=== PATIENT | female | born 1935 | race African-American/Black ===

== ENCOUNTER 2017-07-22 11:19 | Emergency (ER) | payer OTHER ==
[~2017-07-22] VITALS: Ht 162.6 cm; Wt 100.0 kg
[2017-07-22] MEDS ORDERED: ASPIRIN 81MG TABLET PO STA (13:09)
[2017-07-22 13:26] LABS: HEMOGLOBIN. 12.4 g/dL (12.0-16.0); MEAN CORPUSCULAR HEMOGLOBIN 30.2 pg (28.0-32.0); MEAN CORPUSCULAR VOLUME 92.5 fL (81.0-99.0); MEAN PLATELET VOLUME 8.5 fl (7.4-10.4); PLATELET 178 x1000/uL (130-400); RED BLOOD CELL COUNT 4.11 mill/uL (4.2-5.4); RED CELL DISTRIBUTION WIDTH 13.7 % (11.6-14.6)
[2017-07-22 13:35] LABS: INR 1.1; PARTIAL THROMBOPLASTIN TIME 26.8 sec (23.4-31.0); PROTHROMBIN TIME 11.3 sec (9.4-11.6)
[2017-07-22 13:43] LABS: CARBON DIOXIDE 32 mEq/L (21-32); CHLORIDE 103 mEq/L (98-107); TROPONIN I < 0.02 ng/mL (0.00-0.04)
[2017-07-22 14:09] LABS: PLATELET ESTIMATE NORMAL
[2017-07-22 16:04] VITALS: BP 159/76
== END 2017-07-22 16:42 | disposition home or self-care (01) ==
LOC: ER 14:12
DX: G89.29 Other chronic pain (principal); R07.9 Chest pain, unspecified; I10 Essential (primary) hypertension; M17.11 Unilateral primary osteoarthritis, right knee; M25.561 Pain in right knee; E78.00 Pure hypercholesterolemia, unspecified; Z95.0 Presence of cardiac pacemaker
CPT/HCPCS: 36415; 71010; 73560; 80053; 83880; 84484; 85025; 85610; 85730; 93005; 99285; Z7610

== ENCOUNTER 2017-08-05 13:51 | Emergency (ER) | payer OTHER ==
[~2017-08-05] VITALS: Ht 162.6 cm; Wt 100.0 kg
[2017-08-05] MEDS ORDERED: KETOROLAC 60MG/2ML VIAL IM ONE (14:45)
[2017-08-05 17:45] VITALS: BP 162/60
== END 2017-08-05 17:51 | disposition home or self-care (01) ==
LOC: ER 15:39
DX: S70.01XA Contusion of right hip, initial encounter (principal); I10 Essential (primary) hypertension; E78.00 Pure hypercholesterolemia, unspecified; Z95.0 Presence of cardiac pacemaker; Z88.5 Allergy status to narcotic agent; W19.XXXA Unspecified fall, initial encounter; Y93.89 Activity, other specified; Y92.89 Other specified places as the place of occurrence of the external cause; Y99.8 Other external cause status
CPT/HCPCS: 73502; 96372; 99284; J1885

== ENCOUNTER → 2018-02-15 | Outpatient (CLI) | payer OTHER | END | disposition home or self-care (01) | LOC: MAMMO 10:41 | PROVIDERS: ATTEND Specialist | DX: Z12.31 Encounter for screening mammogram for malignant neoplasm of breast (principal) | CPT/HCPCS: 77067 ==

== ENCOUNTER → 2018-03-17 | Day surgery (SDC) | payer MEDICARE, OTHER ==
[~2018-03-17] MED LIST: LIDOCAINE HCL/EPINEPHRINE 1%-EPI 1:100,000 30 ML VIAL INFIL ONE; SODIUM BICARBONATE 4% (2.4MEQ) 5ML VIAL IV ONE
== END | disposition home or self-care (01) ==
LOC: RAD 09:03
PROVIDERS: ATTEND Specialist
DX: C50.412 Malignant neoplasm of upper-outer quadrant of left female breast (principal)
CPT/HCPCS: 19083; 88305; J3490

== ENCOUNTER 2018-05-16 06:06 | Day surgery (SDC) | payer OTHER, MEDICARE ==
[~2018-05-16] VITALS: Ht 165.1 cm; Wt 117.9 kg
[~2018-05-16 06:06] MED LIST changes: +LACTATED RINGERS 1,000 ML IV SCH; -LIDOCAINE HCL/EPINEPHRINE 1%-EPI 1:100,000 30 ML VIAL INFIL ONE; -SODIUM BICARBONATE 4% (2.4MEQ) 5ML VIAL IV ONE
[2018-05-16] MEDS ORDERED: METHYLENE BLUE 50 MG/10 ML AMP IV ONE (08:00)
[2018-05-16] MEDS ORDERED: SKIN ADHESIVE 0.7 GM EA TOP ONE (08:00)
[2018-05-16] MEDS ORDERED: NORMAL SALINE 0.9% 10 ML SYR ONE (08:00)
[2018-05-16] MEDS ORDERED: BUPIVACAINE HCL 0.5% (5MG/ML) 50ML ONE (08:00)
[2018-05-16] MEDS ORDERED: SODIUM BICARBONATE 4% (2.4MEQ) 5ML VIAL IV ONE (08:00)
[2018-05-16] MEDS ORDERED: LIDOCAINE HCL/PF 1% 10 MG/ML 5ML VIAL ONE (08:00)
[2018-05-16] MEDS ORDERED: CLINDAMYCIN 300 MG in DEXTROSE 5% WATER 50 ML IV NR (10:00)
[2018-05-16] MEDS ORDERED: TRAM50TA3 PO (10:19)
[2018-05-16] MEDS ORDERED: METO-396 PO (10:19)
[2018-05-16] MEDS ORDERED: VALS40TA11 PO (10:19)
[2018-05-16] MEDS ORDERED: AMIO100T4 PO (10:19)
[2018-05-16] MEDS ORDERED: CYAN25006 SL (10:19)
[2018-05-16] MEDS ORDERED: CLOP75TA33 PO (10:19)
[2018-05-16] MEDS ORDERED: ROSU5TAB10 PO (10:19)
[2018-05-16] MEDS ORDERED: ASPI-1158 PO (10:19)
[2018-05-16] MEDS ORDERED: AMLO2.5T45 PO (10:19)
[2018-05-17] MEDS ORDERED: VALS1TAB76 PO (00:50)
== END 2018-05-16 13:00 | disposition home or self-care (01) ==
LOC: RAD 06:06
PROVIDERS: ATTEND Surgery
DX: C50.912 Malignant neoplasm of unspecified site of left female breast (principal); C77.3 Secondary and unspecified malignant neoplasm of axilla and upper limb lymph nodes; I10 Essential (primary) hypertension; E78.00 Pure hypercholesterolemia, unspecified; Z79.82 Long term (current) use of aspirin; Z79.899 Other long term (current) drug therapy
CPT/HCPCS: 19301; 38525; 78195; 82962; 88305; 88309; 88331; A4216; G0168; J3490; J7120; 19083; J7060; Q9968

== ENCOUNTER 2018-05-20 17:05 | Inpatient (IN) | payer MEDICARE, OTHER ==
[~2018-05-20] VITALS: Ht 163.8 cm; Wt 105.0 kg
[~2018-05-20 17:05] MED LIST changes: +AMIO100T4 PO; +AMLO2.5T45 PO; +ASPI-1158 PO; +CLOP75TA33 PO; +CYAN25006 SL; -LACTATED RINGERS 1,000 ML IV SCH; +METO-396 PO; +ROSU5TAB10 PO; +TRAM50TA3 PO; +VALS1TAB76 PO
[2018-05-20] MEDS ORDERED: ONDANSETRON HCL 4MG/2ML VIAL IV PRN (18:45)
[2018-05-20 20:00] VITALS: BP 144/61
[2018-05-20] MEDS ORDERED: LEVOFLOXACIN 250MG TABLET PO SCH (21:00)
[2018-05-20] MEDS: ATORVASTATIN CALCIUM 10MG TABLET PO SCH (21:22)
[2018-05-20] MEDS: MUPIROCIN 2% OINT 22GM NS SCH (21:22)
[2018-05-20] MEDS: LACTULOSE 20G/30ML UDC PO SCH (21:23)
[2018-05-20] MEDS: POLYVINYL ALCOHOL OPHTH DROPS 15ML BOTHEYE SCH (21:25)
[2018-05-20] MEDS: METOPROLOL TARTRATE 25MG TABLET PO SCH (21:25)
[2018-05-21] MEDS: SODIUM CHLORIDE 0.9% 1,000 ML IV SCH ×3 (01:42→22:00)
[2018-05-21] MEDS: TRAMADOL 50MG TABLET PO PRN (05:32)
[2018-05-21] MEDS: LACTULOSE 20G/30ML UDC PO SCH ×3 (05:32→21:50)
[2018-05-21 07:47] LABS: BASOPHILS % 1.1 % (0.0-2.0); EOSINOPHILS % 3.4 % (0.0-5.0); HEMOGLOBIN. 9.6 g/dL (12.0-16.0); LYMPHOCYTES % 26.1 % (20.0-50.0); MEAN CORPUSCULAR HEMOGLOBIN 31.1 pg (28.0-32.0); MEAN CORPUSCULAR VOLUME 94.2 fL (81.0-99.0); MEAN PLATELET VOLUME 8.9 fl (7.4-10.4); MONOCYTES % 10.7 % (2.0-8.0); NEUTROPHILS % 58.7 % (40.0-76.0); PLATELET 183 x1000/uL (130-400); RED BLOOD CELL COUNT 3.08 mill/uL (4.2-5.4); RED CELL DISTRIBUTION WIDTH 13.6 % (11.6-14.6)
[2018-05-21 08:00] VITALS: BP 127/57
[2018-05-21 08:26] LABS: CHLORIDE 107 mEq/L (98-107)
[2018-05-21] MEDS: CYANOCOBALAMIN 1000MCG TABLET PO SCH (09:13)
[2018-05-21] MEDS: AMIODARONE HCL 200 MG TABLET PO SCH (09:13)
[2018-05-21] MEDS: AMLODIPINE 2.5MG TABLET PO SCH (09:14)
[2018-05-21] MEDS: CLOPIDOGREL 75MG TABLET PO SCH (09:14)
[2018-05-21] MEDS: METOPROLOL TARTRATE 25MG TABLET PO SCH ×2 (09:15→21:00)
[2018-05-21] MEDS: POLYVINYL ALCOHOL OPHTH DROPS 15ML BOTHEYE SCH ×4 (09:15→21:50)
[2018-05-21] MEDS: MUPIROCIN 2% OINT 22GM NS SCH ×2 (09:15→21:49)
[2018-05-21 09:19] LABS: AMMONIA 32 uMol/L (<32)
[2018-05-21] MEDS ORDERED: NITROFURANTOIN MACROCRYSTAL 100 MG CAPSULE PO SCH (17:00)
[2018-05-21] MEDS: NITROFURANTOIN 100MG M/M CAPSULE PO SCH (18:00)
[2018-05-21 19:46] LABS: CLARITY URINE CLOUDY (CLEAR); COLOR URINE YELLOW (YELLOW); KETONES URINE NEGATIVE (NEGATIVE); LEUKOCYTE ESTERASE URINE 3+ (NEGATIVE); NITRITE URINE NEGATIVE (NEGATIVE); OCCULT BLOOD URINE TRACE (NEGATIVE); PROTEIN URINE NEGATIVE (NEGATIVE); SPECIFIC GRAVITY URINE 1.019 (1.005-1.030)
[2018-05-21 20:00] VITALS: BP 114/66
[2018-05-21] MEDS: ATORVASTATIN CALCIUM 10MG TABLET PO SCH (21:50)
[2018-05-22] MEDS: TRAMADOL 50MG TABLET PO PRN ×2 (04:29→11:12)
[2018-05-22] MEDS: LACTULOSE 20G/30ML UDC PO SCH ×2 (05:44→13:02)
[2018-05-22 08:00] VITALS: BP 121/42
[2018-05-22] MEDS: METOPROLOL TARTRATE 25MG TABLET PO SCH ×2 (09:00→23:14)
[2018-05-22] MEDS: POLYVINYL ALCOHOL OPHTH DROPS 15ML BOTHEYE SCH ×4 (09:38→23:13)
[2018-05-22] MEDS: MUPIROCIN 2% OINT 22GM NS SCH ×2 (09:38→23:13)
[2018-05-22] MEDS: CLOPIDOGREL 75MG TABLET PO SCH (09:43)
[2018-05-22] MEDS: CYANOCOBALAMIN 1000MCG TABLET PO SCH (09:43)
[2018-05-22] MEDS: AMLODIPINE 2.5MG TABLET PO SCH (09:45)
[2018-05-22] MEDS: AMIODARONE HCL 200 MG TABLET PO SCH (09:45)
[2018-05-22] MEDS: NITROFURANTOIN 100MG M/M CAPSULE PO SCH (09:46)
[2018-05-22] MEDS: SODIUM CHLORIDE 0.9% 1,000 ML IV SCH (13:03)
[2018-05-22] MEDS: ACETAMINOPHEN 650MG/20.3ML UDC PO PRN (13:12)
[2018-05-22 20:10] VITALS: BP 137/46
[2018-05-22] MEDS: CEPHALEXIN 500MG CAPSULE PO SCH (22:00)
[2018-05-22] MEDS: ATORVASTATIN CALCIUM 10MG TABLET PO SCH (23:13)
[2018-05-23] MEDS: SODIUM CHLORIDE 0.9% 1,000 ML IV SCH (04:03)
[2018-05-23] MEDS: CEPHALEXIN 500MG CAPSULE PO SCH ×3 (06:08→22:14)
[2018-05-23 06:17] LABS: BASOPHILS % 0.4 % (0.0-2.0); HEMATOCRIT. 26.1 % (36.0-48.0); HEMOGLOBIN. 8.7 g/dL (12.0-16.0); LYMPHOCYTES % 20.7 % (20.0-50.0); MEAN CORPUSCULAR HEMOGLOBIN 31.2 pg (28.0-32.0); MEAN PLATELET VOLUME 8.5 fl (7.4-10.4); MONOCYTES % 9.9 % (2.0-8.0); PLATELET 179 x1000/uL (130-400); RED BLOOD CELL COUNT 2.78 mill/uL (4.2-5.4); RED CELL DISTRIBUTION WIDTH 13.4 % (11.6-14.6)
[2018-05-23 06:27] LABS: AMMONIA 31 uMol/L (<32)
[2018-05-23 06:35] LABS: PHOSPHORUS 2.6 mg/dL (2.5-4.9)
[2018-05-23 06:37] LABS: FERRITIN 306 ng/mL (10-291)
[2018-05-23 07:33] LABS: VITAMIN B12 SERUM >2000 pg/mL pg/mL (211-911)
[2018-05-23 08:22] VITALS: BP 123/49
[2018-05-23] MEDS: MUPIROCIN 2% OINT 22GM NS SCH ×2 (08:37→22:14)
[2018-05-23] MEDS: POLYVINYL ALCOHOL OPHTH DROPS 15ML BOTHEYE SCH ×4 (08:37→22:14)
[2018-05-23] MEDS: CYANOCOBALAMIN 1000MCG TABLET PO SCH (08:38)
[2018-05-23] MEDS: AMIODARONE HCL 200 MG TABLET PO SCH (08:39)
[2018-05-23] MEDS: AMLODIPINE 2.5MG TABLET PO SCH (08:39)
[2018-05-23] MEDS: METOPROLOL TARTRATE 25MG TABLET PO SCH ×2 (08:39→21:00)
[2018-05-23] MEDS: CLOPIDOGREL 75MG TABLET PO SCH (08:39)
[2018-05-23] MEDS: LACTULOSE 20G/30ML UDC PO SCH (08:42)
[2018-05-23] MEDS: ASCORBIC ACID 500 MG TABLET PO SCH (12:16)
[2018-05-23] MEDS: FERROUS SULFATE 325MG TABLET PO SCH ×2 (12:16→16:51)
[2018-05-23] MEDS: MAGNESIUM OXIDE 400MG TABLET PO SCH ×2 (12:16→22:14)
[2018-05-23 20:00] VITALS: BP 116/53
[2018-05-23] MEDS: ATORVASTATIN CALCIUM 10MG TABLET PO SCH (22:14)
[2018-05-24] MEDS: TRAMADOL 50MG TABLET PO PRN ×2 (01:58→18:59)
[2018-05-24] MEDS: CEPHALEXIN 500MG CAPSULE PO SCH ×3 (05:44→21:54)
[2018-05-24 08:32] VITALS: BP 129/47
[2018-05-24] MEDS: POLYVINYL ALCOHOL OPHTH DROPS 15ML BOTHEYE SCH ×4 (08:38→21:57)
[2018-05-24] MEDS: LACTULOSE 20G/30ML UDC PO SCH (08:38)
[2018-05-24] MEDS: FERROUS SULFATE 325MG TABLET PO SCH ×3 (08:38→17:33)
[2018-05-24] MEDS: MUPIROCIN 2% OINT 22GM NS SCH ×2 (08:38→21:57)
[2018-05-24] MEDS: ASCORBIC ACID 500 MG TABLET PO SCH (08:39)
[2018-05-24] MEDS: AMLODIPINE 2.5MG TABLET PO SCH (08:39)
[2018-05-24] MEDS: MAGNESIUM OXIDE 400MG TABLET PO SCH ×2 (08:39→21:53)
[2018-05-24] MEDS: AMIODARONE HCL 200 MG TABLET PO SCH (08:39)
[2018-05-24] MEDS: CYANOCOBALAMIN 1000MCG TABLET PO SCH (08:40)
[2018-05-24] MEDS: CLOPIDOGREL 75MG TABLET PO SCH (08:40)
[2018-05-24] MEDS: METOPROLOL TARTRATE 25MG TABLET PO SCH ×2 (08:40→21:54)
[2018-05-24] MEDS ORDERED: LIDOCAINE HCL 4% CREAM 76GM TUBE TP PRN (19:15)
[2018-05-24 20:00] VITALS: BP 132/68
[2018-05-24] MEDS: ATORVASTATIN CALCIUM 10MG TABLET PO SCH (21:53)
[2018-05-25] VITALS: BP 151/50
[2018-05-25 08:00] VITALS: BP 139/41
[2018-05-25] MEDS: CLOPIDOGREL 75MG TABLET PO SCH (08:52)
[2018-05-25] MEDS: METOPROLOL TARTRATE 25MG TABLET PO SCH ×2 (08:52→22:23)
[2018-05-25] MEDS: FERROUS SULFATE 325MG TABLET PO SCH ×3 (08:53→17:06)
[2018-05-25] MEDS: MAGNESIUM OXIDE 400MG TABLET PO SCH ×2 (08:53→22:22)
[2018-05-25] MEDS: ASCORBIC ACID 500 MG TABLET PO SCH (08:53)
[2018-05-25] MEDS: CYANOCOBALAMIN 1000MCG TABLET PO SCH (08:53)
[2018-05-25] MEDS: AMLODIPINE 2.5MG TABLET PO SCH (08:53)
[2018-05-25] MEDS: AMIODARONE HCL 200 MG TABLET PO SCH (08:53)
[2018-05-25] MEDS: TRAMADOL 50MG TABLET PO PRN ×2 (08:54→11:06)
[2018-05-25] MEDS: MUPIROCIN 2% OINT 22GM NS SCH ×2 (08:59→21:00)
[2018-05-25] MEDS: LACTULOSE 20G/30ML UDC PO SCH (08:59)
[2018-05-25] MEDS: POLYVINYL ALCOHOL OPHTH DROPS 15ML BOTHEYE SCH ×4 (08:59→21:00)
[2018-05-25 20:00] VITALS: BP 125/44
[2018-05-25] MEDS: ATORVASTATIN CALCIUM 10MG TABLET PO SCH (22:22)
[2018-05-25] MEDS: LIDOCAINE 5% PATCH TOP SCH (22:22)
[2018-05-26 07:02] LABS: BASOPHILS % 0.8 % (0.0-2.0); EOSINOPHILS % 2.9 % (0.0-5.0); HEMATOCRIT. 26.4 % (36.0-48.0); HEMOGLOBIN. 8.9 g/dL (12.0-16.0); LYMPHOCYTES % 20.1 % (20.0-50.0); MEAN CORPUSCULAR HEMOGLOBIN 31.8 pg (28.0-32.0); MEAN CORPUSCULAR VOLUME 94.2 fL (81.0-99.0); MEAN PLATELET VOLUME 8.8 fl (7.4-10.4); MONOCYTES % 12.5 % (2.0-8.0); NEUTROPHILS % 63.7 % (40.0-76.0); PLATELET 198 x1000/uL (130-400); RED CELL DISTRIBUTION WIDTH 13.8 % (11.6-14.6)
[2018-05-26 08:00] VITALS: BP 121/42
[2018-05-26] MEDS: FERROUS SULFATE 325MG TABLET PO SCH ×3 (09:15→17:52)
[2018-05-26] MEDS: CYANOCOBALAMIN 1000MCG TABLET PO SCH (09:16)
[2018-05-26] MEDS: AMLODIPINE 2.5MG TABLET PO SCH (09:16)
[2018-05-26] MEDS: ASCORBIC ACID 500 MG TABLET PO SCH (09:17)
[2018-05-26] MEDS: CLOPIDOGREL 75MG TABLET PO SCH (09:17)
[2018-05-26] MEDS: AMIODARONE HCL 200 MG TABLET PO SCH (09:17)
[2018-05-26] MEDS: MAGNESIUM OXIDE 400MG TABLET PO SCH ×2 (09:17→21:01)
[2018-05-26] MEDS: METOPROLOL TARTRATE 25MG TABLET PO SCH ×2 (09:17→21:01)
[2018-05-26] MEDS: LIDOCAINE 5% PATCH TOP SCH (09:18)
[2018-05-26] MEDS: LACTULOSE 20G/30ML UDC PO SCH (09:19)
[2018-05-26] MEDS: POLYVINYL ALCOHOL OPHTH DROPS 15ML BOTHEYE SCH ×4 (09:28→21:02)
[2018-05-26 13:06] LABS: 25-HYDROXY VITAMIN D3 23 ng/mL (.)
[2018-05-26] MEDS: ERGOCALCIFEROL 50000UNITS CAPSULE PO SCH (17:52)
[2018-05-26] MEDS ORDERED: LIDOCAINE 5% PATCH TOP SCH (20:00)
[2018-05-26 20:03] VITALS: BP 143/83
[2018-05-26] MEDS: ATORVASTATIN CALCIUM 10MG TABLET PO SCH (21:01)
[2018-05-27 08:00] VITALS: BP 149/57
[2018-05-27] MEDS: LACTULOSE 20G/30ML UDC PO SCH (08:15)
[2018-05-27] MEDS: ASCORBIC ACID 500 MG TABLET PO SCH (08:16)
[2018-05-27] MEDS: AMIODARONE HCL 200 MG TABLET PO SCH (08:16)
[2018-05-27] MEDS: AMLODIPINE 2.5MG TABLET PO SCH (08:16)
[2018-05-27] MEDS: METOPROLOL TARTRATE 25MG TABLET PO SCH ×2 (08:16→22:41)
[2018-05-27] MEDS: CLOPIDOGREL 75MG TABLET PO SCH (08:16)
[2018-05-27] MEDS: MAGNESIUM OXIDE 400MG TABLET PO SCH ×2 (08:16→22:40)
[2018-05-27] MEDS: FERROUS SULFATE 325MG TABLET PO SCH ×3 (08:16→22:41)
[2018-05-27] MEDS: CYANOCOBALAMIN 1000MCG TABLET PO SCH (08:17)
[2018-05-27] MEDS: LIDOCAINE 5% PATCH TOP SCH (08:22)
[2018-05-27] MEDS: POLYVINYL ALCOHOL OPHTH DROPS 15ML BOTHEYE SCH ×4 (08:24→22:44)
[2018-05-27] MEDS: TRAMADOL 50MG TABLET PO PRN ×2 (15:29→22:57)
[2018-05-27 20:00] VITALS: BP 114/51
[2018-05-27] MEDS: ATORVASTATIN CALCIUM 10MG TABLET PO SCH (22:41)
[2018-05-28 06:08] LABS: BASOPHILS % 0.9 % (0.0-2.0); EOSINOPHILS % 2.5 % (0.0-5.0); HEMATOCRIT. 27.6 % (36.0-48.0); HEMOGLOBIN. 9.2 g/dL (12.0-16.0); LYMPHOCYTES % 24.1 % (20.0-50.0); MEAN CORPUSCULAR HEMOGLOBIN 31.6 pg (28.0-32.0); MEAN CORPUSCULAR VOLUME 94.9 fL (81.0-99.0); MEAN PLATELET VOLUME 9.1 fl (7.4-10.4); MONOCYTES % 11.5 % (2.0-8.0); PLATELET 214 x1000/uL (130-400); RED BLOOD CELL COUNT 2.91 mill/uL (4.2-5.4)
[2018-05-28 06:15] LABS: AMMONIA 38 uMol/L (<32)
[2018-05-28 08:00] VITALS: BP 125/55
[2018-05-28] MEDS: METOPROLOL TARTRATE 25MG TABLET PO SCH ×2 (09:00→22:39)
[2018-05-28] MEDS: POLYVINYL ALCOHOL OPHTH DROPS 15ML BOTHEYE SCH ×4 (09:15→21:00)
[2018-05-28] MEDS: CLOPIDOGREL 75MG TABLET PO SCH (09:17)
[2018-05-28] MEDS: ASCORBIC ACID 500 MG TABLET PO SCH (09:17)
[2018-05-28] MEDS: LIDOCAINE 5% PATCH TOP SCH (09:17)
[2018-05-28] MEDS: CYANOCOBALAMIN 1000MCG TABLET PO SCH (09:19)
[2018-05-28] MEDS: AMIODARONE HCL 200 MG TABLET PO SCH (09:20)
[2018-05-28] MEDS: MAGNESIUM OXIDE 400MG TABLET PO SCH (09:22)
[2018-05-28] MEDS: FERROUS SULFATE 325MG TABLET PO SCH ×3 (09:22→18:23)
[2018-05-28] MEDS: AMLODIPINE 2.5MG TABLET PO SCH (09:23)
[2018-05-28] MEDS: LACTULOSE 20G/30ML UDC PO SCH ×3 (09:30→22:40)
[2018-05-28] MEDS: DIPHENHYDRAMINE HCL/ZINC ACET 28 GM CREAM TOP PRN (19:09)
[2018-05-28 20:00] VITALS: BP 149/62
[2018-05-28] MEDS: ATORVASTATIN CALCIUM 10MG TABLET PO SCH (22:37)
[2018-05-29] MEDS: DIPHENHYDRAMINE HCL/ZINC ACET 28 GM CREAM TOP PRN (05:06)
[2018-05-29] MEDS: TRAMADOL 50MG TABLET PO PRN (05:31)
[2018-05-29] MEDS: LACTULOSE 20G/30ML UDC PO SCH ×3 (06:00→21:48)
[2018-05-29 08:00] VITALS: BP 132/55
[2018-05-29] MEDS: CLOPIDOGREL 75MG TABLET PO SCH (09:17)
[2018-05-29] MEDS: AMIODARONE HCL 200 MG TABLET PO SCH (09:17)
[2018-05-29] MEDS: CYANOCOBALAMIN 1000MCG TABLET PO SCH (09:18)
[2018-05-29] MEDS: METOPROLOL TARTRATE 25MG TABLET PO SCH ×2 (09:18→21:00)
[2018-05-29] MEDS: ASCORBIC ACID 500 MG TABLET PO SCH (09:18)
[2018-05-29] MEDS: AMLODIPINE 2.5MG TABLET PO SCH (09:18)
[2018-05-29] MEDS: FERROUS SULFATE 325MG TABLET PO SCH ×3 (09:18→16:33)
[2018-05-29] MEDS: POLYVINYL ALCOHOL OPHTH DROPS 15ML BOTHEYE SCH ×4 (09:19→21:48)
[2018-05-29] MEDS: LIDOCAINE 5% PATCH TOP SCH (09:19)
[2018-05-29 20:00] VITALS: BP 129/62
[2018-05-29] MEDS: ATORVASTATIN CALCIUM 10MG TABLET PO SCH (21:47)
[2018-05-30] MEDS: LACTULOSE 20G/30ML UDC PO SCH ×3 (05:16→22:21)
[2018-05-30 06:25] LABS: BASOPHILS % 0.8 % (0.0-2.0); EOSINOPHILS % 2.9 % (0.0-5.0); HEMATOCRIT. 28.9 % (36.0-48.0); HEMOGLOBIN. 9.5 g/dL (12.0-16.0); LYMPHOCYTES % 23.2 % (20.0-50.0); MEAN CORPUSCULAR HEMOGLOBIN 31.1 pg (28.0-32.0); MEAN CORPUSCULAR VOLUME 94.8 fL (81.0-99.0); MEAN PLATELET VOLUME 8.7 fl (7.4-10.4); MONOCYTES % 11.7 % (2.0-8.0); NEUTROPHILS % 61.4 % (40.0-76.0); PLATELET 222 x1000/uL (130-400); RED BLOOD CELL COUNT 3.04 mill/uL (4.2-5.4); RED CELL DISTRIBUTION WIDTH 14.3 % (11.6-14.6)
[2018-05-30 06:54] LABS: AMMONIA 47 uMol/L (<32)
[2018-05-30 08:00] VITALS: BP 122/43
[2018-05-30] MEDS: CLOPIDOGREL 75MG TABLET PO SCH (08:41)
[2018-05-30] MEDS: FERROUS SULFATE 325MG TABLET PO SCH ×3 (08:41→17:26)
[2018-05-30] MEDS: CYANOCOBALAMIN 1000MCG TABLET PO SCH (08:41)
[2018-05-30] MEDS: AMIODARONE HCL 200 MG TABLET PO SCH (08:41)
[2018-05-30] MEDS: LIDOCAINE 5% PATCH TOP SCH (08:44)
[2018-05-30] MEDS: POLYVINYL ALCOHOL OPHTH DROPS 15ML BOTHEYE SCH ×4 (08:45→22:21)
[2018-05-30] MEDS: ASCORBIC ACID 500 MG TABLET PO SCH (08:48)
[2018-05-30] MEDS: METOPROLOL TARTRATE 25MG TABLET PO SCH ×2 (09:36→21:00)
[2018-05-30] MEDS: AMLODIPINE 2.5MG TABLET PO SCH (09:36)
[2018-05-30 20:00] VITALS: BP 124/54
[2018-05-30] MEDS: ATORVASTATIN CALCIUM 10MG TABLET PO SCH (22:21)
[2018-05-31] MEDS: TRAMADOL 50MG TABLET PO PRN (01:28)
[2018-05-31] MEDS: LACTULOSE 20G/30ML UDC PO SCH ×3 (05:53→21:53)
[2018-05-31 08:00] VITALS: BP 121/49
[2018-05-31] MEDS: METOPROLOL TARTRATE 25MG TABLET PO SCH ×2 (09:00→21:53)
[2018-05-31] MEDS: AMLODIPINE 2.5MG TABLET PO SCH (13:20)
[2018-05-31] MEDS: CYANOCOBALAMIN 1000MCG TABLET PO SCH (13:21)
[2018-05-31] MEDS: FERROUS SULFATE 325MG TABLET PO SCH ×3 (13:21→18:45)
[2018-05-31] MEDS: CLOPIDOGREL 75MG TABLET PO SCH (13:21)
[2018-05-31] MEDS: ASCORBIC ACID 500 MG TABLET PO SCH (13:21)
[2018-05-31] MEDS: POLYVINYL ALCOHOL OPHTH DROPS 15ML BOTHEYE SCH ×4 (13:22→21:53)
[2018-05-31] MEDS: LIDOCAINE 5% PATCH TOP SCH (13:23)
[2018-05-31] MEDS: AMIODARONE HCL 200 MG TABLET PO SCH (13:56)
[2018-05-31 20:00] VITALS: BP 135/69
[2018-05-31] MEDS: ATORVASTATIN CALCIUM 10MG TABLET PO SCH (21:53)
[2018-06-01] MEDS: ACETAMINOPHEN 650MG/20.3ML UDC PO PRN (05:01)
[2018-06-01] MEDS: LACTULOSE 20G/30ML UDC PO SCH ×3 (05:01→22:09)
[2018-06-01 06:53] LABS: AMMONIA 31 uMol/L (<32)
[2018-06-01 08:00] VITALS: BP 128/54
[2018-06-01] MEDS: CLOPIDOGREL 75MG TABLET PO SCH (09:06)
[2018-06-01] MEDS: AMIODARONE HCL 200 MG TABLET PO SCH (09:06)
[2018-06-01] MEDS: METOPROLOL TARTRATE 25MG TABLET PO SCH ×2 (09:06→22:07)
[2018-06-01] MEDS: CYANOCOBALAMIN 1000MCG TABLET PO SCH (09:07)
[2018-06-01] MEDS: ASCORBIC ACID 500 MG TABLET PO SCH (09:07)
[2018-06-01] MEDS: POLYVINYL ALCOHOL OPHTH DROPS 15ML BOTHEYE SCH ×4 (09:07→20:28)
[2018-06-01] MEDS: AMLODIPINE 2.5MG TABLET PO SCH (09:07)
[2018-06-01] MEDS: FERROUS SULFATE 325MG TABLET PO SCH ×3 (09:07→17:52)
[2018-06-01] MEDS: LIDOCAINE 5% PATCH TOP SCH (09:08)
[2018-06-01] MEDS: TRAMADOL 50MG TABLET PO PRN ×2 (10:11→20:28)
[2018-06-01 20:00] VITALS: BP 142/86
[2018-06-01] MEDS: ATORVASTATIN CALCIUM 10MG TABLET PO SCH (20:27)
[2018-06-02] MEDS: LACTULOSE 20G/30ML UDC PO SCH ×3 (05:27→16:44)
[2018-06-02] MEDS: TRAMADOL 50MG TABLET PO PRN (05:29)
[2018-06-02 08:00] VITALS: BP 140/51
[2018-06-02] MEDS: ERGOCALCIFEROL 50000UNITS CAPSULE PO SCH (09:03)
[2018-06-02] MEDS: ASCORBIC ACID 500 MG TABLET PO SCH (09:04)
[2018-06-02] MEDS: CYANOCOBALAMIN 1000MCG TABLET PO SCH (09:04)
[2018-06-02] MEDS: AMLODIPINE 2.5MG TABLET PO SCH (09:04)
[2018-06-02] MEDS: FERROUS SULFATE 325MG TABLET PO SCH ×3 (09:04→16:44)
[2018-06-02] MEDS: CLOPIDOGREL 75MG TABLET PO SCH (09:04)
[2018-06-02] MEDS: METOPROLOL TARTRATE 25MG TABLET PO SCH (09:05)
[2018-06-02] MEDS: AMIODARONE HCL 200 MG TABLET PO SCH (09:05)
[2018-06-02] MEDS: POLYVINYL ALCOHOL OPHTH DROPS 15ML BOTHEYE SCH ×3 (09:09→16:45)
[2018-06-02] MEDS: LIDOCAINE 5% PATCH TOP SCH (09:10)
[2018-06-02 10:58] VITALS: BP 136/51
== END 2018-06-02 18:58 | disposition home health service (06) | DRG 92 ==
PROVIDERS: ADMIT Physical Medicine & Rehabilitation Spinal Cord Injury Medicine; ATTEND Internal Medicine
DX: G92 Toxic encephalopathy (principal); N39.0 Urinary tract infection, site not specified; E72.20 Disorder of urea cycle metabolism, unspecified; N17.9 Acute kidney failure, unspecified; E46 Unspecified protein-calorie malnutrition; E16.2 Hypoglycemia, unspecified; I10 Essential (primary) hypertension; E78.00 Pure hypercholesterolemia, unspecified; D63.8 Anemia in other chronic diseases classified elsewhere; C50.912 Malignant neoplasm of unspecified site of left female breast; E78.5 Hyperlipidemia, unspecified; R26.9 Unspecified abnormalities of gait and mobility; R53.81 Other malaise; B96.20 Unspecified Escherichia coli [E. coli] as the cause of diseases classified elsewhere; R29.6 Repeated falls; M75.41 Impingement syndrome of right shoulder; E55.9 Vitamin D deficiency, unspecified; M17.10 Unilateral primary osteoarthritis, unspecified knee; E83.42 Hypomagnesemia; M62.81 Muscle weakness (generalized); D50.9 Iron deficiency anemia, unspecified; Z16.23 Resistance to quinolones and fluoroquinolones; F41.9 Anxiety disorder, unspecified; F32.9 Major depressive disorder, single episode, unspecified; Z95.0 Presence of cardiac pacemaker; Z88.0 Allergy status to penicillin; Z88.6 Allergy status to analgesic agent; Z82.49 Family history of ischemic heart disease and other diseases of the circulatory system; Z85.3 Personal history of malignant neoplasm of breast; Z68.39 Body mass index [BMI] 39.0-39.9, adult
CPT/HCPCS: 36415; 73560; 80048; 80053; 80061; 81003; 82140; 82270; 82306; 82550; 82607; 82728; 82746; 82962; 83036; 83540; 83550; 83735; 84100; 84134; 84443; 84550; 84630; 85025; 87077; 87086; 87186; 92523; 93970; 97110; 97116; 97150; 97162; 97167; 97530; 97535; G0515; J7030; J7040

== ENCOUNTER 2019-05-26 21:15 | Inpatient (IN) | payer MEDICARE, OTHER ==
[~2019-05-26] VITALS: Ht 165.1 cm; Wt 103.9 kg
[2019-05-26] MEDS ORDERED: HYDRALAZINE 20MG/ML VIAL IV ONE (22:00)
[2019-05-26 23:48] LABS: BASOPHILS % 1.4 % (0.0-2.0); EOSINOPHILS % 1.8 % (0.0-5.0); HEMATOCRIT. 38.8 % (36.0-48.0); HEMOGLOBIN. 12.7 g/dL (12.0-16.0); LYMPHOCYTES % 22.1 % (20.0-50.0); MEAN CORPUSCULAR HEMOGLOBIN 30.6 pg (28.0-32.0); MEAN CORPUSCULAR VOLUME 93.3 fL (81.0-99.0); MEAN PLATELET VOLUME 9.3 fl (7.4-10.4); MONOCYTES % 9.9 % (2.0-8.0); NEUTROPHILS % 64.8 % (40.0-76.0); PLATELET 159 x1000/uL (130-400); RED BLOOD CELL COUNT 4.16 mill/uL (4.2-5.4); RED CELL DISTRIBUTION WIDTH 13.7 % (11.6-14.6)
[2019-05-26 23:55] LABS: PROTHROMBIN TIME 10.5 sec (9.6-11.0)
[2019-05-26 23:58] LABS: CHLORIDE 107 mEq/L (98-107)
[2019-05-27 00:18] LABS: CLARITY URINE CLEAR (CLEAR); COLOR URINE YELLOW (YELLOW); KETONES URINE NEGATIVE (NEGATIVE); LEUKOCYTE ESTERASE URINE 1+ (NEGATIVE); NITRITE URINE NEGATIVE (NEGATIVE); OCCULT BLOOD URINE TRACE (NEGATIVE); PH URINE 6.5 (4.5-8.0); PROTEIN URINE NEGATIVE (NEGATIVE); SPECIFIC GRAVITY URINE 1.013 (1.005-1.030); UROBILINOGEN URINE 0.2 E.U./dL (0.2-1.0)
[2019-05-27 00:31] LABS: *AMPHETAMINES SCREEN URINE NEGATIVE (NEGATIVE); *BARBITURATES SCREEN URINE NEGATIVE (NEGATIVE)
[2019-05-27 00:33] LABS: *BENZODIAZEPINES SCREEN URINE NEGATIVE (NEGATIVE); *COCAINE SCREEN URINE NEGATIVE (NEGATIVE); CANNABINOID URINE SCREEN NEGATIVE (NEGATIVE); METHADONE URINE SCREEN NEGATIVE (NEGATIVE); OPIATES URINE SCREEN NEGATIVE (NEGATIVE); PHENCYCLIDINE URINE SCREEN NEGATIVE (NEGATIVE)
[2019-05-27] MEDS ORDERED: HYDRALAZINE 20MG/ML VIAL IV PRN ×3 (03:15→11:15)
[2019-05-27] MEDS ORDERED: TRAMADOL 50MG TABLET PO ONE (05:00)
[2019-05-27] MEDS ORDERED: KETOROLAC 30MG/ML VIAL IV ONE (06:45)
[2019-05-27] MEDS ORDERED: KETOROLAC 15MG/ML VIAL IV SCH (06:50)
[2019-05-27 08:00] VITALS: BP 183/69
[2019-05-27 08:15] VITALS: BP_SYST 183; BP_SYST 189; BP_DIAS 69
[2019-05-27] MEDS ORDERED: CETI10TA6 MT (10:56)
[2019-05-27] MEDS ORDERED: RANI150T7 MT (10:56)
[2019-05-27] MEDS ORDERED: CARB10DR EACHEYE (10:56)
[2019-05-27] MEDS ORDERED: LOSA50TA41 MT (10:56)
[2019-05-27] MEDS ORDERED: CLONIDINE 0.2MG TABLET PO PRN (11:15)
[2019-05-27] MEDS ORDERED: METOPROLOL TARTRATE 25MG TABLET PO SCH (11:30)
[2019-05-27] MEDS ORDERED: LOSARTAN POTASSIUM 50 MG TABLET PO SCH (11:30)
[2019-05-27] MEDS ORDERED: AMIODARONE HCL 200 MG TABLET PO SCH (11:30)
[2019-05-27 12:00] VITALS: BP 130/55
[2019-05-27] MEDS ORDERED: AMLODIPINE 2.5MG TABLET PO SCH (12:00)
[2019-05-27 13:08] LABS: BASOPHILS % 0.5 % (0.0-2.0); EOSINOPHILS % 2.4 % (0.0-5.0); HEMATOCRIT. 38.4 % (36.0-48.0); HEMOGLOBIN. 12.7 g/dL (12.0-16.0); MEAN CORPUSCULAR HEMOGLOBIN 30.6 pg (28.0-32.0); MEAN CORPUSCULAR VOLUME 92.9 fL (81.0-99.0); MEAN PLATELET VOLUME 9.3 fl (7.4-10.4); MONOCYTES % 13.1 % (2.0-8.0); PLATELET 154 x1000/uL (130-400); RED BLOOD CELL COUNT 4.14 mill/uL (4.2-5.4); RED CELL DISTRIBUTION WIDTH 13.9 % (11.6-14.6)
[2019-05-27 13:43] LABS: CHLORIDE 107 mEq/L (98-107)
[2019-05-27] MEDS: LOSARTAN POTASSIUM 50 MG TABLET PO SCH ×2 (14:07→21:09)
[2019-05-27] MEDS: ASPIRIN 81MG TABLET PO SCH (14:07)
[2019-05-27] MEDS: AMIODARONE HCL 200 MG TABLET PO SCH (14:07)
[2019-05-27] MEDS: CETIRIZINE 10MG TABLET PO SCH (14:07)
[2019-05-27] MEDS: ENOXAPARIN 30MG/0.3ML SYR SUBCUT SCH (14:08)
[2019-05-27 14:23] VITALS: BP_SYST 110; BP_SYST 130; BP_DIAS 55; BP_DIAS 59
[2019-05-27 16:00] VITALS: BP 142/51
[2019-05-27 20:00] VITALS: BP 166/59
[2019-05-27] MEDS ORDERED: MEDICATION NOT ON FORMULARY EA (Ranitidine Hcl 1 TAB) MT SCH (21:00)
[2019-05-27] MEDS: FAMOTIDINE 20MG TABLET PO SCH (21:09)
[2019-05-27] MEDS: AMLODIPINE 5MG TABLET PO SCH (21:10)
[2019-05-27] MEDS: METOPROLOL TARTRATE 25MG TABLET PO SCH (21:11)
[2019-05-28] VITALS: BP 135/61
[2019-05-28] MEDS: ENOXAPARIN 30MG/0.3ML SYR SUBCUT SCH ×3 (01:10→23:25)
[2019-05-28 04:00] VITALS: BP 134/60
[2019-05-28 05:57] LABS: BASOPHILS % 0.6 % (0.0-2.0); EOSINOPHILS % 2.6 % (0.0-5.0); HEMATOCRIT. 35.8 % (36.0-48.0); HEMOGLOBIN. 11.8 g/dL (12.0-16.0); LYMPHOCYTES % 29.6 % (20.0-50.0); MEAN CORPUSCULAR HEMOGLOBIN 30.7 pg (28.0-32.0); MEAN CORPUSCULAR VOLUME 93.2 fL (81.0-99.0); MEAN PLATELET VOLUME 9.3 fl (7.4-10.4); MONOCYTES % 11.9 % (2.0-8.0); NEUTROPHILS % 55.3 % (40.0-76.0); PLATELET 161 x1000/uL (130-400); RED BLOOD CELL COUNT 3.84 mill/uL (4.2-5.4); RED CELL DISTRIBUTION WIDTH 14.3 % (11.6-14.6)
[2019-05-28 06:50] LABS: CHLORIDE 107 mEq/L (98-107)
[2019-05-28 06:59] LABS: LDL CHOLESTEROL 72 mg/dL (5-100)
[2019-05-28 07:00] LABS: CREATINE KINASE 58 IU/L (26-192); CREATINE KINASE MB FRACTION < 1.0 ng/mL (0.5-3.6); HDL CHOLESTEROL 54 mg/dL (40-59)
[2019-05-28 08:00] VITALS: BP_SYST 117; BP_SYST 138; BP_DIAS 57; BP_DIAS 60
[2019-05-28] MEDS: CETIRIZINE 10MG TABLET PO SCH (08:54)
[2019-05-28] MEDS: POLYVINYL ALCOHOL OPHTH DROPS 15ML OP SCH ×2 (08:54→16:47)
[2019-05-28] MEDS: ASPIRIN 81MG TABLET PO SCH (08:55)
[2019-05-28] MEDS: LOSARTAN POTASSIUM 50 MG TABLET PO SCH ×2 (08:55→20:45)
[2019-05-28] MEDS: METOPROLOL TARTRATE 25MG TABLET PO SCH ×2 (08:55→20:44)
[2019-05-28] MEDS: AMIODARONE HCL 200 MG TABLET PO SCH (08:55)
[2019-05-28] MEDS: AMLODIPINE 5MG TABLET PO SCH ×2 (08:55→20:45)
[2019-05-28] MEDS ORDERED: CARBOXYMETHYL EACHEYE SCH (09:00)
[2019-05-28] MEDS ORDERED: GLYCERIN EACHEYE SCH (09:00)
[2019-05-28] MEDS ORDERED: POLY80 EACHEYE SCH (09:00)
[2019-05-28] MEDS ORDERED: [UNRECOGNIZED DRUG - OTHER] EACHEYE SCH (09:00)
[2019-05-28 12:00] VITALS: BP_SYST 123; BP_SYST 150; BP_DIAS 64; BP_DIAS 68
[2019-05-28 16:00] VITALS: BP 129/53
[2019-05-28 19:17] LABS: *AMPHETAMINES SCREEN URINE NEGATIVE (NEGATIVE); *BARBITURATES SCREEN URINE NEGATIVE (NEGATIVE); *BENZODIAZEPINES SCREEN URINE NEGATIVE (NEGATIVE); *COCAINE SCREEN URINE NEGATIVE (NEGATIVE)
[2019-05-28 19:18] LABS: CANNABINOID URINE SCREEN NEGATIVE (NEGATIVE); METHADONE URINE SCREEN NEGATIVE (NEGATIVE); OPIATES URINE SCREEN NEGATIVE (NEGATIVE); PHENCYCLIDINE URINE SCREEN NEGATIVE (NEGATIVE)
[2019-05-28 20:00] VITALS: BP 142/46
[2019-05-28] MEDS: FAMOTIDINE 20MG TABLET PO SCH (20:44)
[2019-05-29] VITALS (7 sets, daily range): BP systolic 111–174; BP diastolic 45–66
[2019-05-29] MEDS: TRAMADOL 50MG TABLET PO PRN ×2 (03:39→22:52)
[2019-05-29 07:38] LABS: EOSINOPHILS % 4.3 % (0.0-5.0); HEMATOCRIT. 38.2 % (36.0-48.0); HEMOGLOBIN. 12.6 g/dL (12.0-16.0); LYMPHOCYTES % 26.3 % (20.0-50.0); MEAN CORPUSCULAR HEMOGLOBIN 30.8 pg (28.0-32.0); MEAN CORPUSCULAR VOLUME 93.2 fL (81.0-99.0); MEAN PLATELET VOLUME 9.1 fl (7.4-10.4); NEUTROPHILS % 54.4 % (40.0-76.0); PLATELET 152 x1000/uL (130-400); RED BLOOD CELL COUNT 4.09 mill/uL (4.2-5.4); RED CELL DISTRIBUTION WIDTH 14.1 % (11.6-14.6)
[2019-05-29 07:51] LABS: CHLORIDE 108 mEq/L (98-107)
[2019-05-29] MEDS: METOPROLOL TARTRATE 25MG TABLET PO SCH ×2 (09:00→21:48)
[2019-05-29] MEDS: AMIODARONE HCL 200 MG TABLET PO SCH (09:48)
[2019-05-29] MEDS: LOSARTAN POTASSIUM 50 MG TABLET PO SCH ×2 (09:48→21:49)
[2019-05-29] MEDS: ASPIRIN 81MG TABLET PO SCH (09:48)
[2019-05-29] MEDS: CETIRIZINE 10MG TABLET PO SCH (09:48)
[2019-05-29] MEDS: AMLODIPINE 5MG TABLET PO SCH ×2 (09:49→21:49)
[2019-05-29] MEDS ORDERED: IOHEXOL-350 100 ML BOTTLE ONE (11:39)
[2019-05-29] MEDS: ENOXAPARIN 30MG/0.3ML SYR SUBCUT SCH ×2 (11:59→22:48)
[2019-05-29] MEDS: ATORVASTATIN CALCIUM 20MG TABLET PO SCH (21:49)
[2019-05-29] MEDS: FAMOTIDINE 20MG TABLET PO SCH (21:49)
[2019-05-30] VITALS (36 sets, daily range): BP systolic 113–180; BP diastolic 48–89
[2019-05-30 07:17] LABS: HEMATOCRIT. 36.9 % (36.0-48.0); HEMOGLOBIN. 12.1 g/dL (12.0-16.0); MEAN CORPUSCULAR HEMOGLOBIN 30.7 pg (28.0-32.0); MEAN CORPUSCULAR VOLUME 93.8 fL (81.0-99.0); MEAN PLATELET VOLUME 9.1 fl (7.4-10.4); PLATELET 151 x1000/uL (130-400); RED BLOOD CELL COUNT 3.93 mill/uL (4.2-5.4); RED CELL DISTRIBUTION WIDTH 13.7 % (11.6-14.6)
[2019-05-30] MEDS: METOPROLOL TARTRATE 25MG TABLET PO SCH ×2 (08:34→21:56)
[2019-05-30] MEDS: CETIRIZINE 10MG TABLET PO SCH (08:34)
[2019-05-30] MEDS: AMLODIPINE 5MG TABLET PO SCH ×2 (08:34→21:55)
[2019-05-30] MEDS: AMIODARONE HCL 200 MG TABLET PO SCH (08:35)
[2019-05-30] MEDS: ASPIRIN 81MG TABLET PO SCH (08:35)
[2019-05-30] MEDS: LOSARTAN POTASSIUM 50 MG TABLET PO SCH ×2 (08:35→21:55)
[2019-05-30] MEDS: CLONIDINE 0.1MG TABLET PO PRN (09:47)
[2019-05-30 10:37] LABS: PLATELET ESTIMATE NORMAL
[2019-05-30] MEDS ORDERED: LIDOCAINE HCL 1% 20ML VIAL (Pyxis) INJ ONE (10:37)
[2019-05-30] MEDS ORDERED: BACITRACIN 15GM TUBE TOP ONE (10:37)
[2019-05-30] MEDS ORDERED: HEPARIN SODIUM 1,000 UNIT/1ML VIAL IV ONE (10:37)
[2019-05-30] MEDS ORDERED: THROMBIN (BOVINE) 5000 UNITS/VIAL TOP ONE (10:37)
[2019-05-30] MEDS ORDERED: BUPIVACAINE HCL/PF 0.5% (5MG/ML) 10ML ONE (10:37)
[2019-05-30] MEDS ORDERED: BACITRACIN 50,000 UNITS/VIAL ONE (10:38)
[2019-05-30] MEDS ORDERED: NORMAL SALINE 0.9% 10 ML SYR ONE (10:38)
[2019-05-30] MEDS: ENOXAPARIN 30MG/0.3ML SYR SUBCUT SCH (11:30)
[2019-05-30] MEDS ORDERED: FENTANYL CITRATE/PF 50MCG/ML 2ML VIAL ONE (12:38)
[2019-05-30] MEDS ORDERED: MIDAZOLAM HCL 2 MG/2 ML VIAL ONE (12:38)
[2019-05-30] MEDS ORDERED: LIDOCAINE HCL/PF 1% 10 MG/ML 5ML VIAL ONE (12:39)
[2019-05-30] MEDS ORDERED: ETOMIDATE 2MG/ML 10ML VIAL IV ONE (12:39)
[2019-05-30] MEDS ORDERED: ROCURONIUM BROMIDE 10MG/ML VIAL 5ML IV ONE (12:40)
[2019-05-30] MEDS ORDERED: NICARDIPINE 40MG/200ML PREMIX 200 ML IV PRN (12:45)
[2019-05-30] MEDS ORDERED: EPHEDRINE SULFATE 50MG/ML VIAL ONE ×2 (12:46→13:51)
[2019-05-30] MEDS ORDERED: SODIUM CHLORIDE 0.9% 10ML VIAL ONE ×3 (12:47→13:51)
[2019-05-30] MEDS ORDERED: SUCCINYLCHOLINE CHLORIDE 200MG/10ML IV ONE (12:48)
[2019-05-30] MEDS ORDERED: CALCIUM CHLORIDE 1GM/10ML SYR IV ONE (12:49)
[2019-05-30] MEDS ORDERED: PHENYLEPHRINE HCL 10 MG/ML 1ML (IV VIAL) IV ONE (12:49)
[2019-05-30] MEDS ORDERED: ESMOLOL HCL 10MG/ML 10ML VIAL IV ONE (12:52)
[2019-05-30] MEDS ORDERED: HYDRALAZINE 20MG/ML VIAL ONE (12:52)
[2019-05-30] MEDS ORDERED: LEVOFLOXACIN 500MG PREMIX 100 ML IV ONE (13:29)
[2019-05-30] MEDS ORDERED: ONDANSETRON HCL 4MG/2ML INJ ONE (13:42)
[2019-05-30] MEDS ORDERED: HEPARIN 1000 UNITS/ML 10ML ONE (13:46)
[2019-05-30] MEDS ORDERED: DEXAMETHASONE 4MG/ML 1ML VIAL ONE (13:53)
[2019-05-30] MEDS ORDERED: PROTAMINE SULFATE 10MG/ML VIAL 5ML IV ONE (14:27)
[2019-05-30] MEDS ORDERED: NEOSTIGMINE METHYLSULFATE 1MG/ML 10 ML VIAL ONE (14:30)
[2019-05-30] MEDS ORDERED: GLYCOPYRROLATE 0.2 MG/ML 2ML VIAL ONE (14:30)
[2019-05-30] MEDS ORDERED: FLUMAZENIL 0.1 MG/ML 5ML VIAL IV ONE (15:03)
[2019-05-30] MEDS: NICARDIPINE 50 MG in SODIUM CHLORIDE 0.9% 230 ML IV PRN (19:45)
[2019-05-30] MEDS: MORPHINE SULFATE 2 MG/ML CPJ (NOT FOR IM USE) IV PRN (19:46)
[2019-05-30] MEDS: FAMOTIDINE 20MG TABLET PO SCH (21:55)
[2019-05-30] MEDS: ATORVASTATIN CALCIUM 20MG TABLET PO SCH (21:56)
[2019-05-31] VITALS (43 sets, daily range): BP systolic 123–187; BP diastolic 14–113
[2019-05-31] MEDS: MORPHINE SULFATE 2 MG/ML CPJ (NOT FOR IM USE) IV PRN ×2 (00:33→08:30)
[2019-05-31 05:41] LABS: CHLORIDE 104 mEq/L (98-107)
[2019-05-31 05:42] LABS: HEMATOCRIT. 38.3 % (36.0-48.0); HEMOGLOBIN. 12.6 g/dL (12.0-16.0); MEAN CORPUSCULAR HEMOGLOBIN 30.5 pg (28.0-32.0); MEAN CORPUSCULAR VOLUME 92.9 fL (81.0-99.0); MEAN PLATELET VOLUME 10.3 fl (7.4-10.4); PLATELET 157 x1000/uL (130-400); RED BLOOD CELL COUNT 4.12 mill/uL (4.2-5.4); RED CELL DISTRIBUTION WIDTH 13.9 % (11.6-14.6)
[2019-05-31] MEDS: NICARDIPINE 50 MG in SODIUM CHLORIDE 0.9% 230 ML IV PRN (06:32)
[2019-05-31 06:50] LABS: PLATELET ESTIMATE NORMAL
[2019-05-31] MEDS: LOSARTAN POTASSIUM 50 MG TABLET PO SCH ×3 (08:51→21:00)
[2019-05-31] MEDS: METOPROLOL TARTRATE 25MG TABLET PO SCH ×2 (08:51→21:00)
[2019-05-31] MEDS: AMLODIPINE 5MG TABLET PO SCH ×3 (08:52→21:00)
[2019-05-31] MEDS: CETIRIZINE 10MG TABLET PO SCH (08:52)
[2019-05-31] MEDS: AMIODARONE HCL 200 MG TABLET PO SCH (08:52)
[2019-05-31] MEDS: ASPIRIN 81MG TABLET PO SCH (08:52)
[2019-05-31] MEDS: TRAMADOL 50MG TABLET PO PRN (10:28)
[2019-05-31] MEDS: SODIUM CHLORIDE 0.9% 1,000 ML IV SCH (17:22)
[2019-05-31] MEDS: ATORVASTATIN CALCIUM 20MG TABLET PO SCH (21:03)
[2019-05-31] MEDS: FAMOTIDINE 20MG TABLET PO SCH (21:04)
[2019-06-01] VITALS (12 sets, daily range): BP systolic 116–150; BP diastolic 5–67
[2019-06-01] MEDS: TRAMADOL 50MG TABLET PO PRN (04:54)
[2019-06-01] MEDS: SODIUM CHLORIDE 0.9% 1,000 ML IV SCH (08:23)
[2019-06-01] MEDS: AMLODIPINE 5MG TABLET PO SCH ×2 (08:33→21:00)
[2019-06-01] MEDS: METOPROLOL TARTRATE 25MG TABLET PO SCH ×2 (08:34→21:48)
[2019-06-01] MEDS: ASPIRIN 81MG TABLET PO SCH (08:34)
[2019-06-01] MEDS: LOSARTAN POTASSIUM 50 MG TABLET PO SCH ×2 (08:34→21:00)
[2019-06-01] MEDS: CETIRIZINE 10MG TABLET PO SCH (08:34)
[2019-06-01 16:59] LABS: BASOPHILS % 0.5 % (0.0-2.0); EOSINOPHILS % 0.6 % (0.0-5.0); HEMATOCRIT. 35.6 % (36.0-48.0); HEMOGLOBIN. 11.5 g/dL (12.0-16.0); LYMPHOCYTES % 20.2 % (20.0-50.0); MEAN CORPUSCULAR HEMOGLOBIN 30.3 pg (28.0-32.0); MEAN CORPUSCULAR VOLUME 93.5 fL (81.0-99.0); MEAN PLATELET VOLUME 9.1 fl (7.4-10.4); MONOCYTES % 13.4 % (2.0-8.0); NEUTROPHILS % 65.3 % (40.0-76.0); PLATELET 145 x1000/uL (130-400); RED CELL DISTRIBUTION WIDTH 13.8 % (11.6-14.6)
[2019-06-01] MEDS: ATORVASTATIN CALCIUM 20MG TABLET PO SCH (21:48)
[2019-06-01] MEDS: FAMOTIDINE 20MG TABLET PO SCH (21:48)
[2019-06-02] VITALS (11 sets, daily range): BP systolic 118–154; BP diastolic 45–68
[2019-06-02] MEDS: SODIUM CHLORIDE 0.9% 1,000 ML IV SCH ×2 (01:50→17:24)
[2019-06-02] MEDS: MORPHINE SULFATE 2 MG/ML CPJ (NOT FOR IM USE) IV PRN ×2 (05:52→18:05)
[2019-06-02] MEDS: AMLODIPINE 5MG TABLET PO SCH ×2 (08:53→20:56)
[2019-06-02] MEDS: LOSARTAN POTASSIUM 50 MG TABLET PO SCH ×2 (08:53→20:56)
[2019-06-02] MEDS: METOPROLOL TARTRATE 25MG TABLET PO SCH ×2 (08:53→21:58)
[2019-06-02] MEDS: ASPIRIN 81MG TABLET PO SCH (08:53)
[2019-06-02] MEDS: CETIRIZINE 10MG TABLET PO SCH (08:53)
[2019-06-02 10:28] LABS: HEMATOCRIT 36.5 % (36.0-48.0); MEAN CORPUSCULAR HEMOGLOBIN 30.9 pg (28.0-32.0); MEAN CORPUSCULAR VOLUME 94.4 fL (81.0-99.0); PLATELET 151 x1000/uL (130-400); RED BLOOD CELL COUNT 3.87 mill/uL (4.2-5.4); RED CELL DISTRIBUTION WIDTH 14.2 % (11.6-14.6)
[2019-06-02] MEDS ORDERED: NYSTATIN POWDER 15GM TOP PRN (19:15)
[2019-06-02] MEDS: ATORVASTATIN CALCIUM 20MG TABLET PO SCH (20:55)
[2019-06-02] MEDS: FAMOTIDINE 20MG TABLET PO SCH (20:55)
[2019-06-03] VITALS (13 sets, daily range): BP systolic 131–170; BP diastolic 53–85
[2019-06-03 06:27] LABS: HEMOGLOBIN 12.1 g/dL (12.0-16.0); MEAN CORPUSCULAR HEMOGLOBIN 30.6 pg (28.0-32.0); MEAN CORPUSCULAR VOLUME 93.8 fL (81.0-99.0); PLATELET 156 x1000/uL (130-400); RED BLOOD CELL COUNT 3.95 mill/uL (4.2-5.4); RED CELL DISTRIBUTION WIDTH 14.1 % (11.6-14.6)
[2019-06-03] MEDS: LOSARTAN POTASSIUM 50 MG TABLET PO SCH ×2 (09:26→21:46)
[2019-06-03] MEDS: METOPROLOL TARTRATE 25MG TABLET PO SCH ×2 (09:27→21:46)
[2019-06-03] MEDS: ASPIRIN 81MG TABLET PO SCH (09:27)
[2019-06-03] MEDS: AMLODIPINE 5MG TABLET PO SCH ×2 (09:27→21:45)
[2019-06-03] MEDS: CETIRIZINE 10MG TABLET PO SCH (09:27)
[2019-06-03] MEDS: SODIUM CHLORIDE 0.9% 1,000 ML IV SCH (10:26)
[2019-06-03] MEDS ORDERED: HYDROCODONE/ACETAMINOPHEN 5/325MG TABLET PO PRN (17:00)
[2019-06-03] MEDS ORDERED: TRAMADOL 50MG TABLET PO PRN (17:45)
[2019-06-03] MEDS: MORPHINE SULFATE 2 MG/ML CPJ (NOT FOR IM USE) IV PRN (18:06)
[2019-06-03] MEDS: ATORVASTATIN CALCIUM 20MG TABLET PO SCH (21:46)
[2019-06-03] MEDS: FAMOTIDINE 20MG TABLET PO SCH (21:46)
[2019-06-04] VITALS (12 sets, daily range): BP systolic 100–186; BP diastolic 43–85
[2019-06-04] MEDS: CLONIDINE 0.1MG TABLET PO PRN (01:11)
[2019-06-04] MEDS: SODIUM CHLORIDE 0.9% 1,000 ML IV SCH ×2 (04:02→20:00)
[2019-06-04 06:59] LABS: HEMATOCRIT 35.7 % (36.0-48.0); HEMOGLOBIN 11.5 g/dL (12.0-16.0); MEAN CORPUSCULAR HEMOGLOBIN 30.2 pg (28.0-32.0); MEAN CORPUSCULAR VOLUME 94.3 fL (81.0-99.0); PLATELET 152 x1000/uL (130-400); RED BLOOD CELL COUNT 3.79 mill/uL (4.2-5.4); RED CELL DISTRIBUTION WIDTH 13.9 % (11.6-14.6)
[2019-06-04 08:13] LABS: CHLORIDE 107 mEq/L (98-107)
[2019-06-04] MEDS: LOSARTAN POTASSIUM 50 MG TABLET PO SCH (08:45)
[2019-06-04] MEDS: AMLODIPINE 5MG TABLET PO SCH (08:45)
[2019-06-04] MEDS: CETIRIZINE 10MG TABLET PO SCH (08:45)
[2019-06-04] MEDS: ASPIRIN 81MG TABLET PO SCH (08:45)
[2019-06-04] MEDS: METOPROLOL TARTRATE 25MG TABLET PO SCH ×2 (08:46→21:08)
[2019-06-04] MEDS: FAMOTIDINE 20MG TABLET PO SCH (21:08)
[2019-06-04] MEDS: AMLODIPINE 2.5MG TABLET PO SCH (21:08)
[2019-06-04] MEDS: LOSARTAN POTASSIUM 25 MG TABLET PO SCH (21:09)
[2019-06-04] MEDS: ATORVASTATIN CALCIUM 20MG TABLET PO SCH (21:09)
[2019-06-05] VITALS (12 sets, daily range): BP systolic 122–160; BP diastolic 57–72
[2019-06-05 07:37] LABS: BASOPHILS % 0.6 % (0.0-2.0); EOSINOPHILS % 5.8 % (0.0-5.0); HEMOGLOBIN. 12.1 g/dL (12.0-16.0); LYMPHOCYTES % 27.4 % (20.0-50.0); MEAN CORPUSCULAR HEMOGLOBIN 30.5 pg (28.0-32.0); MEAN CORPUSCULAR VOLUME 93.7 fL (81.0-99.0); MONOCYTES % 13.9 % (2.0-8.0); NEUTROPHILS % 52.3 % (40.0-76.0); RED BLOOD CELL COUNT 3.95 mill/uL (4.2-5.4); RED CELL DISTRIBUTION WIDTH 13.7 % (11.6-14.6)
[2019-06-05 07:54] LABS: CHLORIDE 117 mEq/L (98-107)
[2019-06-05] MEDS: LOSARTAN POTASSIUM 25 MG TABLET PO SCH (09:01)
[2019-06-05] MEDS: CETIRIZINE 10MG TABLET PO SCH (09:01)
[2019-06-05] MEDS: METOPROLOL TARTRATE 25MG TABLET PO SCH (09:01)
[2019-06-05] MEDS: AMLODIPINE 2.5MG TABLET PO SCH (09:02)
[2019-06-05] MEDS: ASPIRIN 81MG TABLET PO SCH (09:02)
[2019-06-05] MEDS: SODIUM CHLORIDE 0.9% 1,000 ML IV SCH (12:50)
[2019-06-05 17:54] LABS: PLATELET 147 x1000/uL (130-400)
[2019-06-05] MEDS ORDERED: LOSARTAN POTASSIUM 50 MG TABLET PO SCH (21:00)
[2019-06-05] MEDS ORDERED: AMLODIPINE 5MG TABLET PO SCH (21:00)
== END 2019-06-05 20:20 | DRG 254 ==
LOC: ER 21:15 → EDBEDREQ 22:20 → 5WST 05-27 00:40 → EDBEDREQTM 05-27 01:13 → EDBEDREQ 05-27 01:13 → ENRESERV 05-27 07:00 → CVICU 05-30 15:33 → 3WST 05-31 18:50 → UNDODISIN 06-04 20:20
PROVIDERS: ADMIT Internal Medicine; ATTEND Internal Medicine
PROC: 03CK0ZZ Extirpation of Matter from Right Internal Carotid Artery, Open Approach (ICD-10-PCS; principal; 2019-05-30)
PROC: 03CM0ZZ Extirpation of Matter from Right External Carotid Artery, Open Approach (ICD-10-PCS; 2019-05-30)
PROC: 4B02XSZ Measurement of Cardiac Pacemaker, External Approach (ICD-10-PCS; 2019-06-04)
DX: I16.0 Hypertensive urgency (principal); I65.23 Occlusion and stenosis of bilateral carotid arteries; E66.9 Obesity, unspecified; I25.10 Atherosclerotic heart disease of native coronary artery without angina pectoris; I49.5 Sick sinus syndrome; I10 Essential (primary) hypertension; R42 Dizziness and giddiness; M19.90 Unspecified osteoarthritis, unspecified site; E78.00 Pure hypercholesterolemia, unspecified; Z79.890 Hormone replacement therapy; Z85.3 Personal history of malignant neoplasm of breast; Z95.0 Presence of cardiac pacemaker; Z95.2 Presence of prosthetic heart valve; Z88.0 Allergy status to penicillin; Z88.5 Allergy status to narcotic agent; Z68.38 Body mass index [BMI] 38.0-38.9, adult
CPT/HCPCS: 36415; 70498; 71045; 80048; 80061; 80305; 80320; 82140; 82550; 82553; 83735; 83880; 84484; 85027; 85379; 86850; 86900; 88304; 88311; 93005; 93306; 93880; 93970; 94002; 96374; 96375; 96376; 97116; 97162; 97164; 97166; 97530; 99285; A6261; C1893; J0330; J0360; J1100; J1644; J1650; J1885; J1956; J2250; J2270; J2370; J2405; J2710; J2720; J3010; J3490; J7030; J7050; Q9967; G0480

== ENCOUNTER → 2019-08-28 | Day surgery (SDC) | payer MEDICARE, OTHER ==
[~2019-08-28] MED LIST changes: +CARB10DR EACHEYE; +CETI10TA6 MT; +LIDOCAINE HCL/EPINEPHRINE 1%-EPI 1:100,000 20 ML VIAL ONE; +LOSA50TA41 MT; +RANI150T7 MT; +SODIUM BICARBONATE 4% (2.4MEQ) 5ML VIAL IV ONE
== END | disposition home or self-care (01) ==
LOC: RAD 09:51
PROVIDERS: ATTEND Internal Medicine Hematology & Oncology
DX: N63.21 Unspecified lump in the left breast, upper outer quadrant (principal); C50.412 Malignant neoplasm of upper-outer quadrant of left female breast; F15.90 Other stimulant use, unspecified, uncomplicated; Z82.49 Family history of ischemic heart disease and other diseases of the circulatory system; Z79.82 Long term (current) use of aspirin; Z79.899 Other long term (current) drug therapy; Z72.89 Other problems related to lifestyle
CPT/HCPCS: 10005; J3490

== ENCOUNTER 2020-08-13 08:47 | Inpatient (IN) | payer MEDICARE, OTHER ==
[~2020-08-13] VITALS: Ht 154.9 cm; Wt 101.6 kg
[~2020-08-13 08:47] MED LIST changes: -LIDOCAINE HCL/EPINEPHRINE 1%-EPI 1:100,000 20 ML VIAL ONE; -SODIUM BICARBONATE 4% (2.4MEQ) 5ML VIAL IV ONE
[2020-08-13] MEDS ORDERED: AMLODIPINE 2.5MG TABLET PO ONE (09:15)
[2020-08-13] MEDS ORDERED: METOPROLOL TARTRATE 25MG TABLET PO ONE (09:15)
[2020-08-13] MEDS ORDERED: CLONIDINE 0.2MG TABLET PO ONE (11:30)
[2020-08-13] MEDS ORDERED: NITROGLYCERIN OINT 1GM/INCH UDPKT TD ONE (11:30)
[2020-08-13 13:05] LABS: HEMATOCRIT. 42.1 % (36.0-48.0); HEMOGLOBIN. 13.8 g/dL (12.0-16.0); MEAN CORPUSCULAR HEMOGLOBIN 31.1 pg (28.0-32.0); MEAN CORPUSCULAR VOLUME 94.8 fL (81.0-99.0); RED BLOOD CELL COUNT 4.45 mill/uL (4.2-5.4); RED CELL DISTRIBUTION WIDTH 13.4 % (11.6-14.6)
[2020-08-13 13:14] LABS: CHLORIDE 105 mEq/L (98-107)
[2020-08-13 13:29] LABS: PLATELET ESTIMATE NORMAL
[2020-08-13 16:40] VITALS: BP 195/76
[2020-08-13] MEDS: AMLODIPINE 2.5MG TABLET PO SCH (17:08)
[2020-08-13] MEDS: LOSARTAN POTASSIUM 25 MG TABLET PO SCH (17:08)
[2020-08-13] MEDS ORDERED: ONDANSETRON HCL 4MG/2ML INJ IV PRN (17:30)
[2020-08-13] MEDS: ENOXAPARIN 40MG/0.4ML SYR SUBCUT SCH (18:18)
[2020-08-13 18:30] VITALS: BP 146/66
[2020-08-13 18:31] VITALS: BP 195/76
[2020-08-13] MEDS ORDERED: OMEP20CA14 MT (18:59)
[2020-08-13] MEDS ORDERED: CHOL200077 MT (18:59)
[2020-08-13] MEDS ORDERED: LETR2.5T7 PO (18:59)
[2020-08-13] MEDS ORDERED: GABA-529 MT (18:59)
[2020-08-13] MEDS: CEFTRIAXONE 1,000 MG in DEXTROSE 5% WATER 50 ML IV SCH (19:54)
[2020-08-13 20:00] VITALS: BP 138/68
[2020-08-13] MEDS ORDERED: ATORVASTATIN CALCIUM 20MG TABLET PO SCH (21:00)
[2020-08-13] MEDS: ATORVASTATIN CALCIUM 40MG TABLET PO SCH (21:20)
[2020-08-14] VITALS (7 sets, daily range): BP systolic 111–146; BP diastolic 43–87
[2020-08-14 03:46] LABS: CLARITY URINE CLEAR (CLEAR); COLOR URINE YELLOW (YELLOW); KETONES URINE NEGATIVE (NEGATIVE); LEUKOCYTE ESTERASE URINE NEGATIVE (NEGATIVE); NITRITE URINE NEGATIVE (NEGATIVE); OCCULT BLOOD URINE NEGATIVE (NEGATIVE); PROTEIN URINE NEGATIVE (NEGATIVE); SPECIFIC GRAVITY URINE 1.015 (1.005-1.030); UROBILINOGEN URINE 0.2 E.U./dL (0.2-1.0)
[2020-08-14 06:49] LABS: BASOPHILS % 0.5 % (0.0-2.0); EOSINOPHILS % 3.9 % (0.0-5.0); HEMATOCRIT. 36.9 % (36.0-48.0); HEMOGLOBIN. 12.1 g/dL (12.0-16.0); LYMPHOCYTES % 20.5 % (20.0-50.0); MEAN CORPUSCULAR HEMOGLOBIN 30.8 pg (28.0-32.0); MEAN CORPUSCULAR VOLUME 93.9 fL (81.0-99.0); MEAN PLATELET VOLUME 9.5 fl (7.4-10.4); MONOCYTES % 13.5 % (2.0-8.0); NEUTROPHILS % 61.6 % (40.0-76.0); PLATELET 158 x1000/uL (130-400); RED BLOOD CELL COUNT 3.93 mill/uL (4.2-5.4); RED CELL DISTRIBUTION WIDTH 13.2 % (11.6-14.6)
[2020-08-14] MEDS: LOSARTAN POTASSIUM 25 MG TABLET PO SCH (10:40)
[2020-08-14] MEDS: METOPROLOL TARTRATE 25MG TABLET PO SCH ×2 (10:41→22:45)
[2020-08-14] MEDS: CLOPIDOGREL 75MG TABLET PO SCH (10:41)
[2020-08-14] MEDS: AMLODIPINE 2.5MG TABLET PO SCH (10:41)
[2020-08-14] MEDS: DOCUSATE SODIUM 250MG CAPSULE PO SCH (14:10)
[2020-08-14] MEDS: ENOXAPARIN 40MG/0.4ML SYR SUBCUT SCH (17:00)
[2020-08-14] MEDS: TRAMADOL 50MG TABLET PO PRN ×2 (17:02→23:22)
[2020-08-14] MEDS: CEFTRIAXONE 1,000 MG in DEXTROSE 5% WATER 50 ML IV SCH (18:48)
[2020-08-14] MEDS: ATORVASTATIN CALCIUM 40MG TABLET PO SCH (22:45)
[2020-08-15] VITALS (7 sets, daily range): BP systolic 120–154; BP diastolic 50–78
[2020-08-15] MEDS: TRAMADOL 50MG TABLET PO PRN (06:13)
[2020-08-15] MEDS: LOSARTAN POTASSIUM 25 MG TABLET PO SCH (09:20)
[2020-08-15] MEDS: AMLODIPINE 2.5MG TABLET PO SCH (09:20)
[2020-08-15] MEDS: DOCUSATE SODIUM 250MG CAPSULE PO SCH (09:20)
[2020-08-15] MEDS: CLOPIDOGREL 75MG TABLET PO SCH (09:20)
[2020-08-15] MEDS: METOPROLOL TARTRATE 25MG TABLET PO SCH (09:21)
[2020-08-15 09:37] LABS: BASOPHILS % 1.3 % (0.0-2.0); EOSINOPHILS % 4.4 % (0.0-5.0); HEMATOCRIT. 41.1 % (36.0-48.0); HEMOGLOBIN. 13.5 g/dL (12.0-16.0); LYMPHOCYTES % 28.1 % (20.0-50.0); MEAN CORPUSCULAR HEMOGLOBIN 31.2 pg (28.0-32.0); MEAN CORPUSCULAR VOLUME 95.2 fL (81.0-99.0); MEAN PLATELET VOLUME 9.2 fl (7.4-10.4); MONOCYTES % 10.2 % (2.0-8.0); PLATELET 173 x1000/uL (130-400); RED BLOOD CELL COUNT 4.32 mill/uL (4.2-5.4); RED CELL DISTRIBUTION WIDTH 13.4 % (11.6-14.6)
[2020-08-15] MEDS ORDERED: LACTULOSE 20G/30ML UDC PO SCH (14:00)
[2020-08-15] MEDS ORDERED: NA PHOS,M-B/NA PHOS,DI-BA ENEMA 118ML PR NR (16:30)
[2020-08-15] MEDS: ENOXAPARIN 40MG/0.4ML SYR SUBCUT SCH (18:00)
== END 2020-08-15 19:01 | disposition home or self-care (01) | DRG 304 ==
LOC: ER 09:13 → EDBEDREQ 13:50 → EDBEDREQTM 13:50 → EDBEDREQ 14:20 → EDBEDREQTM 14:20 → 6WST 14:26 → ENRESERV 15:44
PROVIDERS: ADMIT Internal Medicine; ATTEND Internal Medicine
DX: I16.0 Hypertensive urgency (principal); N17.0 Acute kidney failure with tubular necrosis; N39.0 Urinary tract infection, site not specified; I50.30 Unspecified diastolic (congestive) heart failure; I35.0 Nonrheumatic aortic (valve) stenosis; K59.00 Constipation, unspecified; M19.90 Unspecified osteoarthritis, unspecified site; I49.5 Sick sinus syndrome; E78.00 Pure hypercholesterolemia, unspecified; E78.5 Hyperlipidemia, unspecified; I25.10 Atherosclerotic heart disease of native coronary artery without angina pectoris; I11.0 Hypertensive heart disease with heart failure; I65.21 Occlusion and stenosis of right carotid artery; I45.10 Unspecified right bundle-branch block; Z85.3 Personal history of malignant neoplasm of breast; Z86.73 Personal history of transient ischemic attack (TIA), and cerebral infarction without residual deficits; Z95.0 Presence of cardiac pacemaker; Z95.2 Presence of prosthetic heart valve; Z88.6 Allergy status to analgesic agent; Z88.0 Allergy status to penicillin; Z92.21 Personal history of antineoplastic chemotherapy; Z92.3 Personal history of irradiation; Z79.899 Other long term (current) drug therapy; E87.8 Other disorders of electrolyte and fluid balance, not elsewhere classified
CPT/HCPCS: 36415; 71045; 74018; 80048; 80053; 80061; 81003; 83735; 83880; 84484; 85025; 93005; 93970; 97162; 99285; J0696; J1650; J7060

== ENCOUNTER 2021-05-04 12:01 | Inpatient (IN) | payer MEDICARE, OTHER ==
[~2021-05-04] VITALS: Ht 162.6 cm; Wt 109.8 kg
[~2021-05-04 12:01] MED LIST changes: -ASPI-1158 PO; +ASPI-1406 PO; -CARB10DR EACHEYE; +CHOL200077 MT; -CLOP75TA33 PO; -CYAN25006 SL; +GABA-529 MT; +LETR2.5T7 PO; +OMEP20CA14 MT; -RANI150T7 MT; -VALS1TAB76 PO
[2021-05-04] MEDS ORDERED: ASPIRIN 325MG EC TABLET PO ONE (13:00)
[2021-05-04 13:16] LABS: BASOPHILS % 1.1 % (0.0-2.0); EOSINOPHILS % 2.1 % (0.0-5.0); HEMATOCRIT. 40.8 % (36.0-48.0); HEMOGLOBIN. 13.8 g/dL (12.0-16.0); MEAN CORPUSCULAR VOLUME 94.7 fL (81.0-99.0); MEAN PLATELET VOLUME 9.3 fl (7.4-10.4); MONOCYTES % 11.4 % (2.0-8.0); NEUTROPHILS % 65.4 % (40.0-76.0); PLATELET 192 x1000/uL (130-400); RED BLOOD CELL COUNT 4.31 mill/uL (4.2-5.4); RED CELL DISTRIBUTION WIDTH 13.6 % (11.6-14.6)
[2021-05-04 13:22] LABS: CHLORIDE 104 mEq/L (98-107)
[2021-05-04] MEDS: TRAMADOL 50MG TABLET PO PRN (20:40)
[2021-05-04] MEDS ORDERED: OMEPRAZOLE 20MG CAPSULE EXTENDED RELEASE PO SCH (23:15)
[2021-05-04] MEDS: METOPROLOL TARTRATE 25MG TABLET PO SCH (23:15)
[2021-05-04] MEDS: AMLODIPINE 2.5MG TABLET PO SCH (23:15)
[2021-05-04 23:20] VITALS: BP 133/47
[2021-05-04] MEDS ORDERED: ENOXAPARIN 40MG/0.4ML SYR SUBCUT SCH (23:30)
[2021-05-04] MEDS ORDERED: ACETAMINOPHEN 325MG TABLET PO PRN (23:30)
[2021-05-04] MEDS ORDERED: ONDANSETRON HCL 4MG/2ML INJ IV PRN (23:30)
[2021-05-05 04:00] VITALS: BP 166/64
[2021-05-05] MEDS: TRAMADOL 50MG TABLET PO PRN ×2 (04:35→13:00)
[2021-05-05 06:51] LABS: BASOPHILS % 0.7 % (0.0-2.0); EOSINOPHILS % 2.5 % (0.0-5.0); HEMATOCRIT. 38.9 % (36.0-48.0); HEMOGLOBIN. 13.2 g/dL (12.0-16.0); LYMPHOCYTES % 20.5 % (20.0-50.0); MEAN CORPUSCULAR VOLUME 94.4 fL (81.0-99.0); MEAN PLATELET VOLUME 9.2 fl (7.4-10.4); NEUTROPHILS % 62.3 % (40.0-76.0); PLATELET 173 x1000/uL (130-400); RED BLOOD CELL COUNT 4.13 mill/uL (4.2-5.4); RED CELL DISTRIBUTION WIDTH 13.7 % (11.6-14.6)
[2021-05-05 08:00] VITALS: BP 148/55
[2021-05-05] MEDS ORDERED: LETROZOLE 2.5MG TABLET PO SCH (09:00)
[2021-05-05] MEDS: GABAPENTIN 100MG CAPSULE PO SCH ×3 (09:53→17:41)
[2021-05-05] MEDS: ASPIRIN 81MG EC TABLET PO SCH (09:53)
[2021-05-05] MEDS: LOSARTAN POTASSIUM 50 MG TABLET PO SCH ×2 (09:53→17:41)
[2021-05-05] MEDS: METOPROLOL TARTRATE 25MG TABLET PO SCH ×2 (09:56→17:41)
[2021-05-05] MEDS: AMIODARONE HCL 200 MG TABLET PO SCH (09:56)
[2021-05-05] MEDS: AMLODIPINE 2.5MG TABLET PO SCH (09:57)
[2021-05-05 12:00] VITALS: BP 142/58
[2021-05-05] MEDS: LETROZOLE 2.5MG TABLET PO SCH (13:05)
[2021-05-05 16:00] VITALS: BP 149/78
[2021-05-05 20:00] VITALS: BP 114/60
[2021-05-05] MEDS: ENOXAPARIN 30MG/0.3ML SYR SUBCUT SCH (21:56)
[2021-05-05] MEDS: ATORVASTATIN CALCIUM 20MG TABLET PO SCH (21:56)
[2021-05-05] MEDS: LIDOCAINE 5% PATCH TOP SCH (23:56)
[2021-05-06] VITALS: BP 148/74
[2021-05-06 04:00] VITALS: BP 148/59
[2021-05-06] MEDS: TRAMADOL 50MG TABLET PO PRN (05:21)
[2021-05-06 06:57] LABS: FOLIC ACID (FOLATE) SERUM 18.1 ng/mL (>5.38)
[2021-05-06 07:30] LABS: BASOPHILS % 0.6 % (0.0-2.0); EOSINOPHILS % 4.1 % (0.0-5.0); HEMATOCRIT. 39.7 % (36.0-48.0); HEMOGLOBIN. 13.2 g/dL (12.0-16.0); LYMPHOCYTES % 24.2 % (20.0-50.0); MEAN CORPUSCULAR HEMOGLOBIN 31.3 pg (28.0-32.0); MEAN CORPUSCULAR VOLUME 94.4 fL (81.0-99.0); MEAN PLATELET VOLUME 9.9 fl (7.4-10.4); NEUTROPHILS % 60.1 % (40.0-76.0); PLATELET 178 x1000/uL (130-400); RED CELL DISTRIBUTION WIDTH 13.6 % (11.6-14.6)
[2021-05-06 08:00] VITALS: BP 154/60
[2021-05-06] MEDS: ASPIRIN 81MG EC TABLET PO SCH (08:37)
[2021-05-06] MEDS: AMLODIPINE 2.5MG TABLET PO SCH (08:38)
[2021-05-06] MEDS: METOPROLOL TARTRATE 25MG TABLET PO SCH ×2 (08:38→17:30)
[2021-05-06] MEDS: ENOXAPARIN 30MG/0.3ML SYR SUBCUT SCH (08:38)
[2021-05-06] MEDS: GABAPENTIN 100MG CAPSULE PO SCH ×3 (08:38→17:29)
[2021-05-06] MEDS: LOSARTAN POTASSIUM 50 MG TABLET PO SCH ×2 (08:38→17:29)
[2021-05-06] MEDS: AMIODARONE HCL 200 MG TABLET PO SCH (08:38)
[2021-05-06] MEDS: LIDOCAINE 5% PATCH TOP SCH ×2 (08:45→09:00)
[2021-05-06 12:00] VITALS: BP 119/47
[2021-05-06] MEDS: LETROZOLE 2.5MG TABLET PO SCH (13:59)
[2021-05-06 20:00] VITALS: BP 143/58
[2021-05-06] MEDS: ATORVASTATIN CALCIUM 20MG TABLET PO SCH (20:56)
[2021-05-06] MEDS ORDERED: ENOXAPARIN 40MG/0.4ML SYR SUBCUT SCH (21:00)
[2021-05-07] VITALS: BP 157/65
[2021-05-07 04:00] VITALS: BP 149/90
[2021-05-07 06:46] LABS: BASOPHILS % 0.5 % (0.0-2.0); EOSINOPHILS % 3.1 % (0.0-5.0); HEMATOCRIT. 38.9 % (36.0-48.0); HEMOGLOBIN. 13.1 g/dL (12.0-16.0); LYMPHOCYTES % 23.6 % (20.0-50.0); MEAN CORPUSCULAR VOLUME 95.4 fL (81.0-99.0); MEAN PLATELET VOLUME 9.5 fl (7.4-10.4); MONOCYTES % 13.5 % (2.0-8.0); NEUTROPHILS % 59.3 % (40.0-76.0); PLATELET 156 x1000/uL (130-400); RED BLOOD CELL COUNT 4.08 mill/uL (4.2-5.4); RED CELL DISTRIBUTION WIDTH 13.7 % (11.6-14.6)
[2021-05-07] MEDS: TRAMADOL 50MG TABLET PO PRN ×2 (06:58→13:15)
[2021-05-07] MEDS ORDERED: FAMOTIDINE 20MG TABLET PO SCH (07:20)
[2021-05-07 08:03] VITALS: BP 147/60
[2021-05-07] MEDS: METOPROLOL TARTRATE 25MG TABLET PO SCH ×2 (08:44→16:55)
[2021-05-07] MEDS: GABAPENTIN 100MG CAPSULE PO SCH ×3 (08:44→16:55)
[2021-05-07] MEDS: LOSARTAN POTASSIUM 50 MG TABLET PO SCH (08:44)
[2021-05-07] MEDS: AMIODARONE HCL 200 MG TABLET PO SCH (08:44)
[2021-05-07] MEDS: LACTULOSE 20G/30ML UDC PO SCH ×3 (08:44→16:30)
[2021-05-07] MEDS: ASPIRIN 81MG EC TABLET PO SCH (08:44)
[2021-05-07] MEDS: AMLODIPINE 2.5MG TABLET PO SCH (08:45)
[2021-05-07] MEDS ORDERED: LIDOCAINE 5% PATCH TOP SCH (09:00)
[2021-05-07 12:03] VITALS: BP 112/55
[2021-05-07] MEDS: LETROZOLE 2.5MG TABLET PO SCH (13:14)
[2021-05-07] MEDS ORDERED: ENOXAPARIN 30MG/0.3ML SYR SUBCUT SCH (14:00)
[2021-05-07 15:59] VITALS: BP 132/63
[2021-05-07 17:20] VITALS: BP 132/63
[2021-05-08] MEDS ORDERED: AMLODIPINE 10MG TABLET PO SCH (09:00)
[2021-05-09 17:11] LABS: 25-HYDROXY VITAMIN D3 33 ng/mL (.)
== END 2021-05-07 18:50 | DRG 551 ==
LOC: ER 12:01 → 6WST 14:40 → ENRESERV 22:34
PROVIDERS: ADMIT Internal Medicine; ATTEND Internal Medicine
DX: M48.02 Spinal stenosis, cervical region (principal); G82.50 Quadriplegia, unspecified; I42.9 Cardiomyopathy, unspecified; I50.32 Chronic diastolic (congestive) heart failure; Z68.41 Body mass index [BMI] 40.0-44.9, adult; M48.061 Spinal stenosis, lumbar region without neurogenic claudication; E78.00 Pure hypercholesterolemia, unspecified; I25.10 Atherosclerotic heart disease of native coronary artery without angina pectoris; I35.0 Nonrheumatic aortic (valve) stenosis; I49.5 Sick sinus syndrome; M17.0 Bilateral primary osteoarthritis of knee; I65.29 Occlusion and stenosis of unspecified carotid artery; M75.102 Unspecified rotator cuff tear or rupture of left shoulder, not specified as traumatic; E66.9 Obesity, unspecified; E78.5 Hyperlipidemia, unspecified; G89.29 Other chronic pain; H54.62 Unqualified visual loss, left eye, normal vision right eye; I11.0 Hypertensive heart disease with heart failure; M43.16 Spondylolisthesis, lumbar region; M47.9 Spondylosis, unspecified; M50.30 Other cervical disc degeneration, unspecified cervical region; R13.10 Dysphagia, unspecified; R29.6 Repeated falls; Z82.49 Family history of ischemic heart disease and other diseases of the circulatory system; Z86.73 Personal history of transient ischemic attack (TIA), and cerebral infarction without residual deficits; Z85.3 Personal history of malignant neoplasm of breast; Z95.0 Presence of cardiac pacemaker; Z95.2 Presence of prosthetic heart valve; Z88.0 Allergy status to penicillin; Z88.5 Allergy status to narcotic agent
CPT/HCPCS: 36415; 71045; 72128; 72131; 73200; 80048; 80061; 82140; 82306; 82607; 82746; 83735; 84443; 84484; 85025; 92610; 93005; 93306; 93970; 97116; 97162; 97166; 99285; J1650

== ENCOUNTER 2021-05-07 19:10 | Inpatient (IN) | payer MEDICARE, OTHER ==
[~2021-05-07] VITALS: Ht 162.6 cm; Wt 109.8 kg
[2021-05-07 20:00] VITALS: BP 117/68
[2021-05-07] MEDS: ATORVASTATIN CALCIUM 20MG TABLET PO SCH (23:13)
[2021-05-08] MEDS: ENOXAPARIN 30MG/0.3ML SYR SUBCUT SCH ×2 (05:31→20:15)
[2021-05-08] MEDS: FAMOTIDINE 20MG TABLET PO SCH (06:22)
[2021-05-08 06:31] LABS: BASOPHILS % 0.6 % (0.0-2.0); EOSINOPHILS % 4.3 % (0.0-5.0); HEMATOCRIT. 39.1 % (36.0-48.0); LYMPHOCYTES % 26.7 % (20.0-50.0); MEAN CORPUSCULAR HEMOGLOBIN 31.2 pg (28.0-32.0); MEAN CORPUSCULAR VOLUME 93.5 fL (81.0-99.0); MEAN PLATELET VOLUME 9.5 fl (7.4-10.4); MONOCYTES % 12.4 % (2.0-8.0); PLATELET 163 x1000/uL (130-400); RED BLOOD CELL COUNT 4.18 mill/uL (4.2-5.4); RED CELL DISTRIBUTION WIDTH 13.4 % (11.6-14.6)
[2021-05-08 06:52] LABS: CHLORIDE 104 mEq/L (98-107)
[2021-05-08 08:30] VITALS: BP 154/77
[2021-05-08] MEDS ORDERED: GABAPENTIN 100MG CAPSULE PO SCH (09:00)
[2021-05-08] MEDS: LIDOCAINE 5% PATCH TOP SCH (09:33)
[2021-05-08] MEDS: ASPIRIN 81MG EC TABLET PO SCH (09:47)
[2021-05-08] MEDS: METOPROLOL TARTRATE 25MG TABLET PO SCH ×2 (09:47→20:15)
[2021-05-08] MEDS: GABAPENTIN 100MG CAPSULE PO SCH ×3 (09:48→17:00)
[2021-05-08] MEDS: AMLODIPINE 10MG TABLET PO SCH (09:49)
[2021-05-08] MEDS: AMIODARONE HCL 200 MG TABLET PO SCH (09:50)
[2021-05-08] MEDS: TRAMADOL 50MG TABLET PO PRN ×2 (09:50→20:15)
[2021-05-08] MEDS: LETROZOLE 2.5MG TABLET PO SCH (14:00)
[2021-05-08] MEDS: LACTULOSE 20G/30ML UDC PO SCH ×2 (16:00→20:13)
[2021-05-08] MEDS ORDERED: ETHYL CHLORIDE CAN TOP NR (16:30)
[2021-05-08] MEDS ORDERED: LIDOCAINE HCL 1% 20ML VIAL (Pyxis) INJ INFIL NR (16:30)
[2021-05-08] MEDS ORDERED: BUPIVACAINE HCL/PF 0.5% (5MG/ML) 10ML INFIL NR (16:30)
[2021-05-08] MEDS ORDERED: TRIAMCINOLONE ACETONIDE 40MG/ML 1ML VIAL IM NR (16:30)
[2021-05-08 20:00] VITALS: BP 140/70
[2021-05-08] MEDS: ATORVASTATIN CALCIUM 20MG TABLET PO SCH (20:13)
[2021-05-08] MEDS ORDERED: ATORVASTATIN CALCIUM 20MG TABLET PO SCH (21:00)
[2021-05-09] MEDS: LACTULOSE 20G/30ML UDC PO SCH
[2021-05-09] MEDS: FAMOTIDINE 20MG TABLET PO SCH (06:12)
[2021-05-09] MEDS: TRAMADOL 50MG TABLET PO PRN ×2 (06:13→20:34)
[2021-05-09 07:52] VITALS: BP 131/74
[2021-05-09] MEDS: ASPIRIN 81MG EC TABLET PO SCH (11:11)
[2021-05-09] MEDS: GABAPENTIN 100MG CAPSULE PO SCH ×3 (11:13→18:15)
[2021-05-09] MEDS: METOPROLOL TARTRATE 25MG TABLET PO SCH ×2 (11:13→20:34)
[2021-05-09] MEDS: AMLODIPINE 10MG TABLET PO SCH (11:14)
[2021-05-09] MEDS: AMIODARONE HCL 200 MG TABLET PO SCH (11:14)
[2021-05-09] MEDS: ENOXAPARIN 30MG/0.3ML SYR SUBCUT SCH ×2 (11:16→20:33)
[2021-05-09] MEDS: ACETAMINOPHEN 325MG TABLET PO PRN (11:18)
[2021-05-09] MEDS: LIDOCAINE 5% PATCH TOP SCH (11:18)
[2021-05-09] MEDS: LETROZOLE 2.5MG TABLET PO SCH (15:51)
[2021-05-09 20:00] VITALS: BP 141/57
[2021-05-09] MEDS: ATORVASTATIN CALCIUM 20MG TABLET PO SCH (20:33)
[2021-05-10] MEDS: FAMOTIDINE 20MG TABLET PO SCH (06:05)
[2021-05-10 06:50] LABS: BASOPHILS % 1.1 % (0.0-2.0); EOSINOPHILS % 5.1 % (0.0-5.0); HEMATOCRIT. 38.8 % (36.0-48.0); HEMOGLOBIN. 12.6 g/dL (12.0-16.0); LYMPHOCYTES % 28.5 % (20.0-50.0); MEAN CORPUSCULAR VOLUME 95.4 fL (81.0-99.0); MEAN PLATELET VOLUME 10.4 fl (7.4-10.4); MONOCYTES % 12.5 % (2.0-8.0); NEUTROPHILS % 52.8 % (40.0-76.0); PLATELET 130 x1000/uL (130-400); RED BLOOD CELL COUNT 4.07 mill/uL (4.2-5.4); RED CELL DISTRIBUTION WIDTH 13.5 % (11.6-14.6)
[2021-05-10 07:12] LABS: T4 FREE 1.06 ng/dL (0.76-1.46)
[2021-05-10 07:49] LABS: FOLIC ACID (FOLATE) SERUM 19.7 ng/mL (>5.38)
[2021-05-10 08:00] VITALS: BP 118/70
[2021-05-10] MEDS: ASPIRIN 81MG EC TABLET PO SCH (09:08)
[2021-05-10] MEDS: GABAPENTIN 100MG CAPSULE PO SCH ×3 (09:08→17:21)
[2021-05-10] MEDS: TRAMADOL 50MG TABLET PO PRN (09:08)
[2021-05-10] MEDS: AMLODIPINE 10MG TABLET PO SCH (09:08)
[2021-05-10] MEDS: METOPROLOL TARTRATE 25MG TABLET PO SCH ×2 (09:08→22:17)
[2021-05-10] MEDS: AMIODARONE HCL 200 MG TABLET PO SCH (09:08)
[2021-05-10] MEDS: LIDOCAINE 5% PATCH TOP SCH (09:09)
[2021-05-10] MEDS: ENOXAPARIN 30MG/0.3ML SYR SUBCUT SCH ×2 (09:09→22:15)
[2021-05-10] MEDS: LETROZOLE 2.5MG TABLET PO SCH (14:11)
[2021-05-10 20:00] VITALS: BP 164/76
[2021-05-10] MEDS: ATORVASTATIN CALCIUM 20MG TABLET PO SCH (22:16)
[2021-05-11] MEDS: FAMOTIDINE 20MG TABLET PO SCH (05:58)
[2021-05-11 07:53] VITALS: BP 160/69
[2021-05-11] MEDS: ASPIRIN 81MG EC TABLET PO SCH (10:39)
[2021-05-11] MEDS: GABAPENTIN 100MG CAPSULE PO SCH ×3 (10:39→16:48)
[2021-05-11] MEDS: AMIODARONE HCL 200 MG TABLET PO SCH (10:40)
[2021-05-11] MEDS: METOPROLOL TARTRATE 25MG TABLET PO SCH ×2 (10:40→21:43)
[2021-05-11] MEDS: AMLODIPINE 10MG TABLET PO SCH (10:41)
[2021-05-11] MEDS: ENOXAPARIN 30MG/0.3ML SYR SUBCUT SCH ×2 (10:42→21:44)
[2021-05-11] MEDS: LIDOCAINE 5% PATCH TOP SCH (10:42)
[2021-05-11] MEDS: TRAMADOL 50MG TABLET PO PRN ×3 (10:52→16:26)
[2021-05-11] MEDS: LETROZOLE 2.5MG TABLET PO SCH (14:02)
[2021-05-11 20:00] VITALS: BP 145/54
[2021-05-11] MEDS: ATORVASTATIN CALCIUM 20MG TABLET PO SCH (21:43)
[2021-05-12] MEDS: FAMOTIDINE 20MG TABLET PO SCH (06:00)
[2021-05-12 06:39] LABS: BASOPHILS % 0.7 % (0.0-2.0); EOSINOPHILS % 0.4 % (0.0-5.0); HEMATOCRIT. 39.1 % (36.0-48.0); HEMOGLOBIN. 12.8 g/dL (12.0-16.0); LYMPHOCYTES % 20.3 % (20.0-50.0); MEAN CORPUSCULAR HEMOGLOBIN 31.3 pg (28.0-32.0); MEAN CORPUSCULAR VOLUME 95.3 fL (81.0-99.0); MEAN PLATELET VOLUME 9.5 fl (7.4-10.4); MONOCYTES % 8.3 % (2.0-8.0); NEUTROPHILS % 70.3 % (40.0-76.0); PLATELET 164 x1000/uL (130-400); RED CELL DISTRIBUTION WIDTH 13.5 % (11.6-14.6)
[2021-05-12 07:25] VITALS: BP 131/50
[2021-05-12] MEDS: GABAPENTIN 100MG CAPSULE PO SCH ×3 (09:37→16:47)
[2021-05-12] MEDS: AMIODARONE HCL 200 MG TABLET PO SCH (09:37)
[2021-05-12] MEDS: ASPIRIN 81MG EC TABLET PO SCH (09:37)
[2021-05-12] MEDS: ENOXAPARIN 30MG/0.3ML SYR SUBCUT SCH ×2 (09:38→21:03)
[2021-05-12] MEDS: LIDOCAINE 5% PATCH TOP SCH (09:38)
[2021-05-12] MEDS: AMLODIPINE 10MG TABLET PO SCH (09:38)
[2021-05-12] MEDS: METOPROLOL TARTRATE 25MG TABLET PO SCH ×2 (09:38→21:02)
[2021-05-12] MEDS: LETROZOLE 2.5MG TABLET PO SCH (14:00)
[2021-05-12] MEDS ORDERED: LACTULOSE 20G/30ML UDC PO PRN (18:15)
[2021-05-12 20:00] VITALS: BP 126/51
[2021-05-12] MEDS: ATORVASTATIN CALCIUM 20MG TABLET PO SCH (21:04)
[2021-05-13] MEDS ORDERED: TRAMADOL 50MG TABLET PO PRN (04:00)
[2021-05-13] MEDS: FAMOTIDINE 20MG TABLET PO SCH (06:33)
[2021-05-13 08:28] VITALS: BP 110/59
[2021-05-13] MEDS: AMIODARONE HCL 200 MG TABLET PO SCH (08:29)
[2021-05-13] MEDS: ASPIRIN 81MG EC TABLET PO SCH (08:29)
[2021-05-13] MEDS: LIDOCAINE 5% PATCH TOP SCH (08:29)
[2021-05-13] MEDS: METOPROLOL TARTRATE 25MG TABLET PO SCH ×2 (08:30→21:50)
[2021-05-13] MEDS: AMLODIPINE 10MG TABLET PO SCH (08:30)
[2021-05-13] MEDS: GABAPENTIN 100MG CAPSULE PO SCH ×3 (08:31→16:47)
[2021-05-13] MEDS: ENOXAPARIN 30MG/0.3ML SYR SUBCUT SCH ×2 (08:33→21:50)
[2021-05-13] MEDS: LACTULOSE 20G/30ML UDC PO SCH ×3 (09:29→16:50)
[2021-05-13] MEDS ORDERED: LACTULOSE 20G/30ML UDC PO SCH (12:00)
[2021-05-13] MEDS: LETROZOLE 2.5MG TABLET PO SCH (12:50)
[2021-05-13] MEDS: ACETAMINOPHEN 325MG TABLET PO PRN ×2 (16:47→22:00)
[2021-05-13 20:00] VITALS: BP 128/55
[2021-05-13] MEDS: ATORVASTATIN CALCIUM 20MG TABLET PO SCH (21:50)
[2021-05-14 06:32] LABS: BASOPHILS % 0.7 % (0.0-2.0); EOSINOPHILS % 1.7 % (0.0-5.0); HEMATOCRIT. 38.2 % (36.0-48.0); HEMOGLOBIN. 12.7 g/dL (12.0-16.0); LYMPHOCYTES % 21.8 % (20.0-50.0); MEAN CORPUSCULAR HEMOGLOBIN 31.5 pg (28.0-32.0); MEAN PLATELET VOLUME 9.8 fl (7.4-10.4); NEUTROPHILS % 64.8 % (40.0-76.0); PLATELET 160 x1000/uL (130-400); RED BLOOD CELL COUNT 4.02 mill/uL (4.2-5.4); RED CELL DISTRIBUTION WIDTH 13.4 % (11.6-14.6)
[2021-05-14] MEDS: FAMOTIDINE 20MG TABLET PO SCH (06:37)
[2021-05-14 08:00] VITALS: BP 138/62
[2021-05-14] MEDS: ASPIRIN 81MG EC TABLET PO SCH (08:34)
[2021-05-14] MEDS: GABAPENTIN 100MG CAPSULE PO SCH ×3 (08:35→16:59)
[2021-05-14] MEDS: AMIODARONE HCL 200 MG TABLET PO SCH (08:40)
[2021-05-14] MEDS: METOPROLOL TARTRATE 25MG TABLET PO SCH ×2 (08:40→20:58)
[2021-05-14] MEDS: AMLODIPINE 10MG TABLET PO SCH (08:41)
[2021-05-14] MEDS: ENOXAPARIN 30MG/0.3ML SYR SUBCUT SCH ×2 (08:51→21:55)
[2021-05-14] MEDS: LIDOCAINE 5% PATCH TOP SCH (08:52)
[2021-05-14] MEDS: LETROZOLE 2.5MG TABLET PO SCH (14:36)
[2021-05-14 17:06] LABS: 25-HYDROXY VITAMIN D3 34 ng/mL (.)
[2021-05-14] MEDS ORDERED: ERGOCALCIFEROL 50000UNITS CAPSULE PO SCH (18:00)
[2021-05-14 20:00] VITALS: BP 126/45
[2021-05-14] MEDS: ATORVASTATIN CALCIUM 20MG TABLET PO SCH (20:57)
[2021-05-15] MEDS: TRAMADOL 50MG TABLET PO PRN ×3 (02:56→17:26)
[2021-05-15] MEDS: FAMOTIDINE 20MG TABLET PO SCH (06:20)
[2021-05-15 07:23] LABS: BASOPHILS % 0.6 % (0.0-2.0); EOSINOPHILS % 0.8 % (0.0-5.0); HEMATOCRIT. 37.5 % (36.0-48.0); HEMOGLOBIN. 12.4 g/dL (12.0-16.0); LYMPHOCYTES % 21.3 % (20.0-50.0); MEAN CORPUSCULAR HEMOGLOBIN 31.1 pg (28.0-32.0); MEAN CORPUSCULAR VOLUME 94.2 fL (81.0-99.0); MEAN PLATELET VOLUME 9.4 fl (7.4-10.4); MONOCYTES % 10.8 % (2.0-8.0); NEUTROPHILS % 66.5 % (40.0-76.0); PLATELET 175 x1000/uL (130-400); RED BLOOD CELL COUNT 3.98 mill/uL (4.2-5.4); RED CELL DISTRIBUTION WIDTH 13.4 % (11.6-14.6)
[2021-05-15 08:00] VITALS: BP 131/44
[2021-05-15] MEDS: ASPIRIN 81MG EC TABLET PO SCH (08:27)
[2021-05-15] MEDS: GABAPENTIN 100MG CAPSULE PO SCH ×3 (08:27→17:26)
[2021-05-15] MEDS: AMIODARONE HCL 200 MG TABLET PO SCH (08:27)
[2021-05-15] MEDS: AMLODIPINE 10MG TABLET PO SCH (08:28)
[2021-05-15] MEDS: ENOXAPARIN 30MG/0.3ML SYR SUBCUT SCH ×2 (08:29→21:33)
[2021-05-15] MEDS: LIDOCAINE 5% PATCH TOP SCH (08:29)
[2021-05-15] MEDS: METOPROLOL TARTRATE 25MG TABLET PO SCH ×2 (08:30→21:34)
[2021-05-15] MEDS: LETROZOLE 2.5MG TABLET PO SCH (14:31)
[2021-05-15] MEDS: LACTULOSE 20G/30ML UDC PO SCH ×3 (14:31→21:33)
[2021-05-15 20:00] VITALS: BP 155/54
[2021-05-15] MEDS: ATORVASTATIN CALCIUM 20MG TABLET PO SCH (21:38)
[2021-05-16] MEDS: FAMOTIDINE 20MG TABLET PO SCH (06:32)
[2021-05-16 07:48] VITALS: BP 150/62
[2021-05-16] MEDS: AMLODIPINE 10MG TABLET PO SCH (08:08)
[2021-05-16] MEDS: ASPIRIN 81MG EC TABLET PO SCH (08:08)
[2021-05-16] MEDS: METOPROLOL TARTRATE 25MG TABLET PO SCH ×2 (08:08→20:52)
[2021-05-16] MEDS: AMIODARONE HCL 200 MG TABLET PO SCH (08:08)
[2021-05-16] MEDS: GABAPENTIN 100MG CAPSULE PO SCH ×3 (08:08→16:05)
[2021-05-16] MEDS: LIDOCAINE 5% PATCH TOP SCH (08:09)
[2021-05-16] MEDS: ENOXAPARIN 30MG/0.3ML SYR SUBCUT SCH ×2 (08:09→20:51)
[2021-05-16] MEDS: LETROZOLE 2.5MG TABLET PO SCH (12:39)
[2021-05-16 15:13] VITALS: BP 140/60
[2021-05-16 20:00] VITALS: BP 160/63
[2021-05-16] MEDS: ATORVASTATIN CALCIUM 20MG TABLET PO SCH (20:51)
[2021-05-16] MEDS: TRAMADOL 50MG TABLET PO PRN (23:09)
[2021-05-17] MEDS: FAMOTIDINE 20MG TABLET PO SCH (06:40)
[2021-05-17 07:28] VITALS: BP 157/54
[2021-05-17] MEDS: GABAPENTIN 100MG CAPSULE PO SCH ×3 (08:31→16:52)
[2021-05-17] MEDS: LIDOCAINE 5% PATCH TOP SCH (08:31)
[2021-05-17] MEDS: ASPIRIN 81MG EC TABLET PO SCH (08:31)
[2021-05-17] MEDS: ENOXAPARIN 30MG/0.3ML SYR SUBCUT SCH ×2 (08:31→21:25)
[2021-05-17] MEDS: METOPROLOL TARTRATE 25MG TABLET PO SCH ×2 (08:32→21:24)
[2021-05-17] MEDS: AMIODARONE HCL 200 MG TABLET PO SCH (08:32)
[2021-05-17] MEDS: AMLODIPINE 10MG TABLET PO SCH (08:32)
[2021-05-17] MEDS: LETROZOLE 2.5MG TABLET PO SCH (13:05)
[2021-05-17 20:00] VITALS: BP 133/67
[2021-05-17] MEDS: ATORVASTATIN CALCIUM 20MG TABLET PO SCH (21:23)
[2021-05-18] MEDS: TRAMADOL 50MG TABLET PO PRN ×2 (02:01→12:38)
[2021-05-18] MEDS: FAMOTIDINE 20MG TABLET PO SCH (06:15)
[2021-05-18 08:31] VITALS: BP 136/60
[2021-05-18] MEDS: ENOXAPARIN 30MG/0.3ML SYR SUBCUT SCH ×2 (08:52→21:12)
[2021-05-18] MEDS: LIDOCAINE 5% PATCH TOP SCH (08:53)
[2021-05-18] MEDS: AMIODARONE HCL 200 MG TABLET PO SCH (08:53)
[2021-05-18] MEDS: AMLODIPINE 10MG TABLET PO SCH (08:53)
[2021-05-18] MEDS: GABAPENTIN 100MG CAPSULE PO SCH ×3 (08:53→16:25)
[2021-05-18] MEDS: METOPROLOL TARTRATE 25MG TABLET PO SCH ×2 (08:53→21:11)
[2021-05-18] MEDS: ASPIRIN 81MG EC TABLET PO SCH (08:53)
[2021-05-18] MEDS ORDERED: MECLIZINE 12.5MG TABLET PO PRN (13:30)
[2021-05-18] MEDS: LETROZOLE 2.5MG TABLET PO SCH (14:36)
[2021-05-18 20:00] VITALS: BP 126/64
[2021-05-18] MEDS: ATORVASTATIN CALCIUM 20MG TABLET PO SCH (21:10)
[2021-05-19] MEDS: FAMOTIDINE 20MG TABLET PO SCH (06:27)
[2021-05-19 07:21] LABS: BASOPHILS % 0.6 % (0.0-2.0); EOSINOPHILS % 1.1 % (0.0-5.0); HEMATOCRIT. 39.8 % (36.0-48.0); HEMOGLOBIN. 13.3 g/dL (12.0-16.0); LYMPHOCYTES % 21.7 % (20.0-50.0); MEAN CORPUSCULAR HEMOGLOBIN 31.7 pg (28.0-32.0); MEAN PLATELET VOLUME 9.9 fl (7.4-10.4); MONOCYTES % 12.6 % (2.0-8.0); PLATELET 153 x1000/uL (130-400); RED BLOOD CELL COUNT 4.19 mill/uL (4.2-5.4); RED CELL DISTRIBUTION WIDTH 13.7 % (11.6-14.6)
[2021-05-19 07:42] VITALS: BP 167/56
[2021-05-19] MEDS: TRAMADOL 50MG TABLET PO PRN (08:55)
[2021-05-19] MEDS: ASPIRIN 81MG EC TABLET PO SCH (09:18)
[2021-05-19] MEDS: AMIODARONE HCL 200 MG TABLET PO SCH (09:18)
[2021-05-19] MEDS: METOPROLOL TARTRATE 25MG TABLET PO SCH (09:18)
[2021-05-19] MEDS: GABAPENTIN 100MG CAPSULE PO SCH (09:19)
[2021-05-19] MEDS: AMLODIPINE 10MG TABLET PO SCH (09:19)
[2021-05-19] MEDS: ENOXAPARIN 30MG/0.3ML SYR SUBCUT SCH (09:20)
[2021-05-19] MEDS: LIDOCAINE 5% PATCH TOP SCH (09:22)
[2021-05-19 11:41] VITALS: BP 19/167
== END 2021-05-19 13:34 | disposition home health service (06) | DRG 551 ==
PROVIDERS: ADMIT Physical Medicine & Rehabilitation Spinal Cord Injury Medicine; ATTEND Internal Medicine
DX: M48.02 Spinal stenosis, cervical region (principal); G82.50 Quadriplegia, unspecified; I42.9 Cardiomyopathy, unspecified; I50.32 Chronic diastolic (congestive) heart failure; I11.0 Hypertensive heart disease with heart failure; I49.5 Sick sinus syndrome; M48.061 Spinal stenosis, lumbar region without neurogenic claudication; I25.10 Atherosclerotic heart disease of native coronary artery without angina pectoris; M17.0 Bilateral primary osteoarthritis of knee; I35.0 Nonrheumatic aortic (valve) stenosis; E78.5 Hyperlipidemia, unspecified; E55.9 Vitamin D deficiency, unspecified; E78.00 Pure hypercholesterolemia, unspecified; F39 Unspecified mood [affective] disorder; F41.9 Anxiety disorder, unspecified; H54.62 Unqualified visual loss, left eye, normal vision right eye; M47.816 Spondylosis without myelopathy or radiculopathy, lumbar region; M75.102 Unspecified rotator cuff tear or rupture of left shoulder, not specified as traumatic; R13.10 Dysphagia, unspecified; R29.6 Repeated falls; R53.81 Other malaise; M50.30 Other cervical disc degeneration, unspecified cervical region; Z95.2 Presence of prosthetic heart valve; Z85.3 Personal history of malignant neoplasm of breast; Z86.73 Personal history of transient ischemic attack (TIA), and cerebral infarction without residual deficits; Z95.0 Presence of cardiac pacemaker; M13.0 Polyarthritis, unspecified; I65.29 Occlusion and stenosis of unspecified carotid artery
CPT/HCPCS: 36415; 80048; 80053; 82306; 82607; 82728; 82746; 83540; 83550; 83735; 84134; 84439; 84443; 84481; 84484; 85025; 92610; 93005; 93970; 97110; 97116; 97162; 97166; 97530; 97535; J1650; J3301; J3490

== ENCOUNTER 2023-03-05 15:24 | Inpatient (IN) | payer MEDICARE, OTHER ==
[~2023-03-05] VITALS: Ht 160 cm; Wt 73.7 kg
[2023-03-05 19:43] LABS: BASOPHILS % 0.7 % (0.0-2.0); EOSINOPHILS % 1.1 % (0.0-5.0); HEMATOCRIT. 45.1 % (36.0-48.0); HEMOGLOBIN. 14.6 g/dL (12.0-16.0); LYMPHOCYTES % 25.2 % (20.0-50.0); MEAN CORPUSCULAR HEMOGLOBIN 31.5 pg (28.0-32.0); MEAN CORPUSCULAR VOLUME 97.2 fL (81.0-99.0); MEAN PLATELET VOLUME 9.9 fl (7.4-10.4); MONOCYTES % 11.1 % (2.0-8.0); NEUTROPHILS % 61.9 % (40.0-76.0); PLATELET 156 x1000/uL (130-400); RED BLOOD CELL COUNT 4.64 mill/uL (4.2-5.4); RED CELL DISTRIBUTION WIDTH 14.3 % (11.6-14.6)
[2023-03-05 19:55] LABS: CHLORIDE 107 mEq/L (98-107)
[2023-03-05 21:24] LABS: CLARITY URINE CLEAR (CLEAR); COLOR URINE YELLOW (YELLOW); KETONES URINE TRACE (NEGATIVE); LEUKOCYTE ESTERASE URINE NEGATIVE (NEGATIVE); NITRITE URINE NEGATIVE (NEGATIVE); OCCULT BLOOD URINE NEGATIVE (NEGATIVE); PH URINE 7.5 (4.5-8.0); PROTEIN URINE NEGATIVE (NEGATIVE); SPECIFIC GRAVITY URINE 1.011 (1.005-1.030)
[2023-03-05 22:06] LABS: INR 1.1; PROTHROMBIN TIME 11.5 sec (9.6-11.0)
[2023-03-06] MEDS ORDERED: SODIUM CHLORIDE 0.9% 1,000 ML IV NR (02:00)
[2023-03-06] MEDS: ACETAMINOPHEN 325MG TABLET PO NR ×2 (02:30→02:31)
[2023-03-06 09:14] VITALS: BP 136/49
[2023-03-06] MEDS ORDERED: NON FORMULARY PATIENT HOME MED XX SCH (12:30)
[2023-03-06] MEDS ORDERED: MAGNESIUM/ALUMINUM HYDROXIDE/SIMETHICONE 30ML UDC PO PRN (12:30)
[2023-03-06] MEDS ORDERED: FUROSEMIDE 20MG TABLET PO NR (12:30)
[2023-03-06] MEDS: AMIODARONE HCL 200 MG TABLET PO SCH (13:19)
[2023-03-06] MEDS: NIFEDIPINE XL 90MG TAB PO SCH (13:19)
[2023-03-06] MEDS: TRAMADOL 50MG TABLET PO PRN (13:21)
[2023-03-06] MEDS: FAMOTIDINE 20MG/2ML VIAL IV SCH (13:33)
[2023-03-06 14:00] VITALS: BP 136/49
[2023-03-06] MEDS ORDERED: LETROZOLE 2.5MG TABLET PO SCH (14:00)
[2023-03-06] MEDS: SODIUM CHLORIDE 0.9% 1,000 ML IV SCH (14:30)
[2023-03-06 16:00] VITALS: BP 130/64
[2023-03-06] MEDS ORDERED: METOPROLOL SUCCINATE 50MG ER TABLET PO SCH (17:00)
[2023-03-06] MEDS ORDERED: MINERAL OIL ENEMA 133ML PR NR (17:00)
[2023-03-06] MEDS ORDERED: *PATIENT'S OWN MEDICATION STORAGE XX SCH (18:15)
[2023-03-06] MEDS: LETROZOLE 2.5 MG PO SCH (19:00)
[2023-03-06] MEDS: LOSARTAN POTASSIUM 50 MG TABLET PO SCH (19:16)
[2023-03-06] MEDS: METRONIDAZOLE 500 MG PREMIX 100 ML IV SCH (19:17)
[2023-03-06] MEDS: GABAPENTIN 100MG CAPSULE PO SCH ×2 (19:17→22:13)
[2023-03-06 20:00] VITALS: BP 139/61
[2023-03-06] MEDS: CEFTRIAXONE 1,000 MG in DEXTROSE 5% WATER 50 ML IV SCH (20:36)
[2023-03-06] MEDS: METOPROLOL TARTRATE 50MG TABLET PO SCH (22:13)
[2023-03-06] MEDS: LACTULOSE 20G/30ML UDC PO SCH (22:14)
[2023-03-07] VITALS: BP 136/57
[2023-03-07] MEDS: METRONIDAZOLE 500 MG PREMIX 100 ML IV SCH ×3 (03:03→18:30)
[2023-03-07 04:00] VITALS: BP 130/57
[2023-03-07] MEDS: SODIUM CHLORIDE 0.9% 1,000 ML IV SCH ×2 (06:00→15:10)
[2023-03-07] MEDS: GABAPENTIN 100MG CAPSULE PO SCH ×3 (06:16→21:45)
[2023-03-07] MEDS: LEVOTHYROXINE SODIUM 25MCG TABLET PO SCH (06:32)
[2023-03-07 06:55] LABS: BASOPHILS % 0.8 % (0.0-2.0); EOSINOPHILS % 1.9 % (0.0-5.0); HEMATOCRIT. 43.2 % (36.0-48.0); HEMOGLOBIN. 14.6 g/dL (12.0-16.0); LYMPHOCYTES % 25.8 % (20.0-50.0); MEAN CORPUSCULAR VOLUME 94.5 fL (81.0-99.0); MEAN PLATELET VOLUME 9.9 fl (7.4-10.4); MONOCYTES % 12.8 % (2.0-8.0); NEUTROPHILS % 58.7 % (40.0-76.0); PLATELET 164 x1000/uL (130-400); RED BLOOD CELL COUNT 4.58 mill/uL (4.2-5.4); RED CELL DISTRIBUTION WIDTH 13.9 % (11.6-14.6)
[2023-03-07 07:21] LABS: CHLORIDE 105 mEq/L (98-107)
[2023-03-07 08:00] VITALS: BP 108/54
[2023-03-07] MEDS: NIFEDIPINE XL 90MG TAB PO SCH (09:00)
[2023-03-07 12:00] VITALS: BP 113/56
[2023-03-07] MEDS: METOPROLOL TARTRATE 50MG TABLET PO SCH ×2 (12:07→21:46)
[2023-03-07] MEDS: LOSARTAN POTASSIUM 50 MG TABLET PO SCH ×2 (12:07→17:00)
[2023-03-07] MEDS: AMIODARONE HCL 200 MG TABLET PO SCH (12:07)
[2023-03-07] MEDS: FAMOTIDINE 20MG/2ML VIAL IV SCH (12:08)
[2023-03-07] MEDS: LETROZOLE 2.5 MG PO SCH (12:08)
[2023-03-07] MEDS ORDERED: SORBITOL 70% SOLN 30ML PO ONE (12:30)
[2023-03-07 16:00] VITALS: BP 134/61
[2023-03-07] MEDS ORDERED: NALOXONE HCL 0.4MG/ML VIAL IV PRN (16:15)
[2023-03-07] MEDS: CEFTRIAXONE 1,000 MG in DEXTROSE 5% WATER 50 ML IV SCH (18:30)
[2023-03-07 20:00] VITALS: BP 123/57
[2023-03-07] MEDS: LACTULOSE 20G/30ML UDC PO SCH (21:46)
[2023-03-08] VITALS: BP 102/57
[2023-03-08] MEDS: METRONIDAZOLE 500 MG PREMIX 100 ML IV SCH ×2 (01:35→10:34)
[2023-03-08 04:00] VITALS: BP 114/60
[2023-03-08] MEDS: GABAPENTIN 100MG CAPSULE PO SCH ×2 (05:52→14:20)
[2023-03-08] MEDS: SODIUM CHLORIDE 0.9% 1,000 ML IV SCH (05:52)
[2023-03-08] MEDS: TRAMADOL 50MG TABLET PO PRN (05:56)
[2023-03-08] MEDS: LEVOTHYROXINE SODIUM 25MCG TABLET PO SCH (06:28)
[2023-03-08 07:21] LABS: BASOPHILS % 0.6 % (0.0-2.0); EOSINOPHILS % 2.6 % (0.0-5.0); HEMATOCRIT. 43.5 % (36.0-48.0); HEMOGLOBIN. 14.1 g/dL (12.0-16.0); LYMPHOCYTES % 22.4 % (20.0-50.0); MEAN CORPUSCULAR VOLUME 95.3 fL (81.0-99.0); MEAN PLATELET VOLUME 10.2 fl (7.4-10.4); MONOCYTES % 12.8 % (2.0-8.0); NEUTROPHILS % 61.6 % (40.0-76.0); PLATELET 166 x1000/uL (130-400); RED BLOOD CELL COUNT 4.56 mill/uL (4.2-5.4); RED CELL DISTRIBUTION WIDTH 13.7 % (11.6-14.6)
[2023-03-08 08:00] VITALS: BP 123/62
[2023-03-08] MEDS ORDERED: FAMOTIDINE 20MG TABLET PO SCH (09:00)
[2023-03-08] MEDS: LOSARTAN POTASSIUM 50 MG TABLET PO SCH (09:27)
[2023-03-08] MEDS: AMIODARONE HCL 200 MG TABLET PO SCH (09:27)
[2023-03-08] MEDS: NIFEDIPINE XL 90MG TAB PO SCH (09:28)
[2023-03-08] MEDS: METOPROLOL TARTRATE 50MG TABLET PO SCH (09:29)
[2023-03-08] MEDS: LETROZOLE 2.5 MG PO SCH (09:36)
[2023-03-08 10:48] LABS: CHLORIDE 107 mEq/L (98-107)
[2023-03-08 15:28] VITALS: BP 114/54
[2023-03-08] MEDS ORDERED: SORBITOL 70% SOLN 30ML PO SCH (15:30)
== END 2023-03-08 15:50 | DRG 391 ==
LOC: ER 15:24 → 6EST 03-06 05:29 → EDBEDREQ 03-06 05:37 → EDBEDREQTM 03-06 05:37
PROVIDERS: ADMIT Internal Medicine; ATTEND Internal Medicine
DX: K59.00 Constipation, unspecified (principal); G82.50 Quadriplegia, unspecified; I42.9 Cardiomyopathy, unspecified; K52.9 Noninfective gastroenteritis and colitis, unspecified; K57.30 Diverticulosis of large intestine without perforation or abscess without bleeding; C50.912 Malignant neoplasm of unspecified site of left female breast; E66.9 Obesity, unspecified; I10 Essential (primary) hypertension; H54.62 Unqualified visual loss, left eye, normal vision right eye; R13.10 Dysphagia, unspecified; D64.9 Anemia, unspecified; I35.9 Nonrheumatic aortic valve disorder, unspecified; E11.9 Type 2 diabetes mellitus without complications; E03.9 Hypothyroidism, unspecified; Z95.2 Presence of prosthetic heart valve; N81.10 Cystocele, unspecified; M75.102 Unspecified rotator cuff tear or rupture of left shoulder, not specified as traumatic; M48.061 Spinal stenosis, lumbar region without neurogenic claudication; M48.02 Spinal stenosis, cervical region; M17.0 Bilateral primary osteoarthritis of knee; K44.9 Diaphragmatic hernia without obstruction or gangrene; K21.9 Gastro-esophageal reflux disease without esophagitis; I49.5 Sick sinus syndrome; I25.10 Atherosclerotic heart disease of native coronary artery without angina pectoris; E78.00 Pure hypercholesterolemia, unspecified; K57.90 Diverticulosis of intestine, part unspecified, without perforation or abscess without bleeding; Z86.16 Personal history of COVID-19; Z95.0 Presence of cardiac pacemaker; Z88.0 Allergy status to penicillin; Z88.5 Allergy status to narcotic agent; Z86.73 Personal history of transient ischemic attack (TIA), and cerebral infarction without residual deficits; Z85.3 Personal history of malignant neoplasm of breast; Z68.28 Body mass index [BMI] 28.0-28.9, adult
CPT/HCPCS: 36415; 74018; 74176; 76705; 80048; 80053; 81003; 82248; 83735; 84484; 85025; 93306; 97116; 97162; 97166; 99285; A6261; J0696; J3490; J7030; J7060

== ENCOUNTER 2023-03-08 15:53 | Inpatient (IN) | payer MEDICARE, OTHER ==
[~2023-03-08] VITALS: Ht 160 cm; Wt 73.5 kg
[2023-03-08] MEDS ORDERED: *PATIENT'S OWN MEDICATION STORAGE XX SCH (17:15)
[2023-03-08] MEDS ORDERED: NALOXONE HCL 0.4 MG/ML 1ML VIAL IV ONE (17:15)
[2023-03-08] MEDS ORDERED: MAGNESIUM/ALUMINUM HYDROXIDE/SIMETHICONE 30ML UDC PO PRN (17:15)
[2023-03-08] MEDS ORDERED: NALOXONE HCL 0.4MG/ML VIAL IV PRN (17:30)
[2023-03-08 18:04] VITALS: BP 132/57
[2023-03-08 20:00] VITALS: BP 114/51
[2023-03-08] MEDS: LOSARTAN POTASSIUM 50 MG TABLET PO SCH (21:00)
[2023-03-08] MEDS: METOPROLOL TARTRATE 50MG TABLET PO SCH (21:00)
[2023-03-08] MEDS ORDERED: LACTULOSE 20G/30ML UDC PO PRN (21:00)
[2023-03-08] MEDS: METRONIDAZOLE 500MG TABLET PO SCH ×2 (22:00→22:35)
[2023-03-08] MEDS: GABAPENTIN 100MG CAPSULE PO SCH (22:36)
[2023-03-09] MEDS: LEVOTHYROXINE SODIUM 25MCG TABLET PO SCH (07:08)
[2023-03-09] MEDS: GABAPENTIN 100MG CAPSULE PO SCH ×3 (07:08→21:13)
[2023-03-09] MEDS: METRONIDAZOLE 500MG TABLET PO SCH ×3 (07:10→21:13)
[2023-03-09 07:28] LABS: CHLORIDE 107 mEq/L (98-107)
[2023-03-09 07:32] LABS: HEMOGLOBIN. 12.9 g/dL (12.0-16.0); MEAN CORPUSCULAR HEMOGLOBIN 31.2 pg (28.0-32.0); MEAN CORPUSCULAR VOLUME 94.6 fL (81.0-99.0); MEAN PLATELET VOLUME 9.8 fl (7.4-10.4); PLATELET 147 x1000/uL (130-400); RED BLOOD CELL COUNT 4.12 mill/uL (4.2-5.4); RED CELL DISTRIBUTION WIDTH 14.2 % (11.6-14.6)
[2023-03-09 08:00] VITALS: BP 129/79
[2023-03-09] MEDS: FAMOTIDINE 20MG TABLET PO SCH (08:34)
[2023-03-09] MEDS: NIFEDIPINE XL 90MG TAB PO SCH (08:34)
[2023-03-09] MEDS: AMIODARONE HCL 200 MG TABLET PO SCH (08:34)
[2023-03-09] MEDS: METOPROLOL TARTRATE 50MG TABLET PO SCH ×2 (08:35→21:13)
[2023-03-09] MEDS: LOSARTAN POTASSIUM 50 MG TABLET PO SCH ×2 (08:35→21:13)
[2023-03-09] MEDS ORDERED: NON FORMULARY PATIENT HOME MED PO SCH (09:00)
[2023-03-09] MEDS: LETROZOLE 2.5MG TABLET PO SCH (11:55)
[2023-03-09 14:28] LABS: PLATELET ESTIMATE NORMAL
[2023-03-09 20:00] VITALS: BP 133/59
[2023-03-09] MEDS: TRAMADOL 50MG TABLET PO PRN (21:19)
[2023-03-10] MEDS: LEVOTHYROXINE SODIUM 25MCG TABLET PO SCH (06:42)
[2023-03-10] MEDS: GABAPENTIN 100MG CAPSULE PO SCH ×3 (06:43→20:49)
[2023-03-10] MEDS: METRONIDAZOLE 500MG TABLET PO SCH ×3 (06:43→20:48)
[2023-03-10 08:00] VITALS: BP 115/45
[2023-03-10] MEDS: LETROZOLE 2.5MG TABLET PO SCH (09:04)
[2023-03-10] MEDS: NIFEDIPINE XL 90MG TAB PO SCH (09:05)
[2023-03-10] MEDS: AMIODARONE HCL 200 MG TABLET PO SCH (09:05)
[2023-03-10] MEDS: LOSARTAN POTASSIUM 50 MG TABLET PO SCH ×2 (09:05→20:48)
[2023-03-10] MEDS: FAMOTIDINE 20MG TABLET PO SCH (09:05)
[2023-03-10] MEDS: METOPROLOL TARTRATE 50MG TABLET PO SCH ×2 (09:08→20:49)
[2023-03-10] MEDS: ENOXAPARIN 30MG/0.3ML SYR SUBCUT SCH (13:15)
[2023-03-11] MEDS: TRAMADOL 50MG TABLET PO PRN (01:34)
[2023-03-11] MEDS: LEVOTHYROXINE SODIUM 25MCG TABLET PO SCH (06:07)
[2023-03-11] MEDS: METRONIDAZOLE 500MG TABLET PO SCH ×3 (06:07→21:06)
[2023-03-11] MEDS: GABAPENTIN 100MG CAPSULE PO SCH ×3 (06:07→21:07)
[2023-03-11 08:00] VITALS: BP 145/78
[2023-03-11] MEDS: FAMOTIDINE 20MG TABLET PO SCH (08:54)
[2023-03-11] MEDS: METOPROLOL TARTRATE 50MG TABLET PO SCH ×2 (08:54→21:07)
[2023-03-11] MEDS: LOSARTAN POTASSIUM 50 MG TABLET PO SCH ×2 (08:54→21:07)
[2023-03-11] MEDS: ENOXAPARIN 30MG/0.3ML SYR SUBCUT SCH (08:55)
[2023-03-11] MEDS: NIFEDIPINE XL 90MG TAB PO SCH (08:55)
[2023-03-11] MEDS: AMIODARONE HCL 200 MG TABLET PO SCH (08:55)
[2023-03-11] MEDS: LETROZOLE 2.5MG TABLET PO SCH (08:55)
[2023-03-11 12:06] LABS: EOSINOPHILS % 2.5 % (0.0-5.0); HEMATOCRIT. 44.5 % (36.0-48.0); HEMOGLOBIN. 14.5 g/dL (12.0-16.0); LYMPHOCYTES % 19.5 % (20.0-50.0); MEAN CORPUSCULAR HEMOGLOBIN 31.3 pg (28.0-32.0); MEAN PLATELET VOLUME 9.4 fl (7.4-10.4); PLATELET 170 x1000/uL (130-400); RED BLOOD CELL COUNT 4.64 mill/uL (4.2-5.4); RED CELL DISTRIBUTION WIDTH 14.4 % (11.6-14.6)
[2023-03-11 12:14] LABS: CHLORIDE 105 mEq/L (98-107)
[2023-03-11 12:47] LABS: VITAMIN B12 SERUM 756 pg/mL (211-911)
[2023-03-11] MEDS: POLYVINYL ALCOHOL OPHTH DROPS 15ML BOTHEYE SCH ×3 (13:23→21:07)
[2023-03-11 20:00] VITALS: BP 129/47
[2023-03-12] MEDS: LEVOTHYROXINE SODIUM 25MCG TABLET PO SCH (06:23)
[2023-03-12] MEDS: GABAPENTIN 100MG CAPSULE PO SCH ×3 (06:23→21:57)
[2023-03-12 08:00] VITALS: BP 107/62
[2023-03-12] MEDS: FAMOTIDINE 20MG TABLET PO SCH (08:46)
[2023-03-12] MEDS: LETROZOLE 2.5MG TABLET PO SCH (08:46)
[2023-03-12] MEDS: POLYVINYL ALCOHOL OPHTH DROPS 15ML BOTHEYE SCH ×4 (08:46→21:58)
[2023-03-12] MEDS: LOSARTAN POTASSIUM 50 MG TABLET PO SCH ×2 (08:47→21:58)
[2023-03-12] MEDS: METOPROLOL TARTRATE 50MG TABLET PO SCH ×2 (08:47→21:57)
[2023-03-12] MEDS: AMIODARONE HCL 200 MG TABLET PO SCH (08:48)
[2023-03-12] MEDS: NIFEDIPINE XL 90MG TAB PO SCH (08:48)
[2023-03-12] MEDS: ENOXAPARIN 30MG/0.3ML SYR SUBCUT SCH (08:49)
[2023-03-12 20:00] VITALS: BP 126/53
[2023-03-13] MEDS: GABAPENTIN 100MG CAPSULE PO SCH ×3 (06:57→21:22)
[2023-03-13] MEDS: LEVOTHYROXINE SODIUM 25MCG TABLET PO SCH (06:59)
[2023-03-13] MEDS: METOPROLOL TARTRATE 50MG TABLET PO SCH ×2 (09:00→21:00)
[2023-03-13] MEDS: NIFEDIPINE XL 90MG TAB PO SCH (09:00)
[2023-03-13] MEDS: LOSARTAN POTASSIUM 50 MG TABLET PO SCH ×2 (09:33→21:22)
[2023-03-13] MEDS: AMIODARONE HCL 200 MG TABLET PO SCH (09:33)
[2023-03-13] MEDS: FAMOTIDINE 20MG TABLET PO SCH (09:34)
[2023-03-13] MEDS: ENOXAPARIN 30MG/0.3ML SYR SUBCUT SCH (09:35)
[2023-03-13] MEDS: POLYVINYL ALCOHOL OPHTH DROPS 15ML BOTHEYE SCH ×4 (09:41→21:22)
[2023-03-13] MEDS: LETROZOLE 2.5MG TABLET PO SCH (09:41)
[2023-03-13 20:00] VITALS: BP 126/56
[2023-03-14] MEDS: GABAPENTIN 100MG CAPSULE PO SCH ×3 (06:27→22:02)
[2023-03-14] MEDS: LEVOTHYROXINE SODIUM 25MCG TABLET PO SCH (06:27)
[2023-03-14 07:56] VITALS: BP 123/72
[2023-03-14] MEDS: POLYVINYL ALCOHOL OPHTH DROPS 15ML BOTHEYE SCH ×4 (09:00→22:01)
[2023-03-14] MEDS: FAMOTIDINE 20MG TABLET PO SCH (09:11)
[2023-03-14] MEDS: AMIODARONE HCL 200 MG TABLET PO SCH (09:12)
[2023-03-14] MEDS: LOSARTAN POTASSIUM 50 MG TABLET PO SCH ×2 (09:12→22:01)
[2023-03-14] MEDS: LETROZOLE 2.5MG TABLET PO SCH (09:12)
[2023-03-14] MEDS: METOPROLOL TARTRATE 50MG TABLET PO SCH ×2 (09:12→22:01)
[2023-03-14] MEDS: NIFEDIPINE XL 90MG TAB PO SCH (09:12)
[2023-03-14] MEDS: ENOXAPARIN 30MG/0.3ML SYR SUBCUT SCH (09:17)
[2023-03-14] MEDS: LIDOCAINE 5% PATCH TOP SCH (15:26)
[2023-03-14 17:00] LABS: HEMATOCRIT. 43.1 % (36.0-48.0); HEMOGLOBIN. 13.7 g/dL (12.0-16.0); MEAN CORPUSCULAR VOLUME 97.4 fL (81.0-99.0); MEAN PLATELET VOLUME 9.4 fl (7.4-10.4); PLATELET 159 x1000/uL (130-400); RED BLOOD CELL COUNT 4.42 mill/uL (4.2-5.4); RED CELL DISTRIBUTION WIDTH 14.6 % (11.6-14.6)
[2023-03-14 19:38] VITALS: BP 118/69
[2023-03-14 22:40] LABS: PLATELET ESTIMATE NORMAL
[2023-03-15] MEDS: GABAPENTIN 100MG CAPSULE PO SCH ×3 (03:51→21:24)
[2023-03-15] MEDS: LEVOTHYROXINE SODIUM 25MCG TABLET PO SCH (06:36)
[2023-03-15 08:00] VITALS: BP 122/44
[2023-03-15] MEDS: LIDOCAINE 5% PATCH TOP SCH (09:00)
[2023-03-15] MEDS: METOPROLOL TARTRATE 50MG TABLET PO SCH ×2 (09:00→21:00)
[2023-03-15] MEDS: POLYVINYL ALCOHOL OPHTH DROPS 15ML BOTHEYE SCH ×4 (09:00→21:24)
[2023-03-15] MEDS: NIFEDIPINE XL 90MG TAB PO SCH (09:00)
[2023-03-15] MEDS: FAMOTIDINE 20MG TABLET PO SCH (09:18)
[2023-03-15] MEDS: LOSARTAN POTASSIUM 50 MG TABLET PO SCH ×2 (09:18→21:24)
[2023-03-15] MEDS: AMIODARONE HCL 200 MG TABLET PO SCH (09:18)
[2023-03-15] MEDS: ENOXAPARIN 30MG/0.3ML SYR SUBCUT SCH (09:21)
[2023-03-15] MEDS: LETROZOLE 2.5MG TABLET PO SCH (09:22)
[2023-03-15] MEDS: TRAMADOL 50MG TABLET PO PRN (12:55)
[2023-03-15] MEDS ORDERED: ERGOCALCIFEROL 50000UNITS CAPSULE PO SCH (13:00)
[2023-03-15 19:31] VITALS: BP 114/49
[2023-03-16] MEDS: GABAPENTIN 100MG CAPSULE PO SCH ×3 (06:01→21:07)
[2023-03-16] MEDS: LEVOTHYROXINE SODIUM 25MCG TABLET PO SCH (06:02)
[2023-03-16 07:48] VITALS: BP 123/54
[2023-03-16] MEDS: POLYVINYL ALCOHOL OPHTH DROPS 15ML BOTHEYE SCH ×4 (09:00→21:06)
[2023-03-16] MEDS: NIFEDIPINE XL 90MG TAB PO SCH (09:13)
[2023-03-16] MEDS: METOPROLOL TARTRATE 50MG TABLET PO SCH ×2 (09:14→21:08)
[2023-03-16] MEDS: AMIODARONE HCL 200 MG TABLET PO SCH (09:14)
[2023-03-16] MEDS: LOSARTAN POTASSIUM 50 MG TABLET PO SCH ×2 (09:14→21:07)
[2023-03-16] MEDS: FAMOTIDINE 20MG TABLET PO SCH (09:14)
[2023-03-16] MEDS: ENOXAPARIN 30MG/0.3ML SYR SUBCUT SCH (09:15)
[2023-03-16] MEDS: LIDOCAINE 5% PATCH TOP SCH (09:16)
[2023-03-16] MEDS: LETROZOLE 2.5MG TABLET PO SCH (09:20)
[2023-03-16 20:00] VITALS: BP 114/44
[2023-03-17] MEDS: GABAPENTIN 100MG CAPSULE PO SCH ×3 (06:11→20:46)
[2023-03-17] MEDS: LEVOTHYROXINE SODIUM 25MCG TABLET PO SCH (06:11)
[2023-03-17 08:00] VITALS: BP 121/55
[2023-03-17] MEDS: AMIODARONE HCL 200 MG TABLET PO SCH (09:07)
[2023-03-17] MEDS: LETROZOLE 2.5MG TABLET PO SCH (09:07)
[2023-03-17] MEDS: POLYVINYL ALCOHOL OPHTH DROPS 15ML BOTHEYE SCH ×4 (09:07→20:46)
[2023-03-17] MEDS: NIFEDIPINE XL 90MG TAB PO SCH (09:08)
[2023-03-17] MEDS: LOSARTAN POTASSIUM 50 MG TABLET PO SCH ×2 (09:08→20:46)
[2023-03-17] MEDS: FAMOTIDINE 20MG TABLET PO SCH (09:08)
[2023-03-17] MEDS: METOPROLOL TARTRATE 50MG TABLET PO SCH ×2 (09:09→20:46)
[2023-03-17] MEDS: ENOXAPARIN 30MG/0.3ML SYR SUBCUT SCH (09:10)
[2023-03-17] MEDS: LIDOCAINE 5% PATCH TOP SCH (09:11)
[2023-03-17 20:00] VITALS: BP 116/52
[2023-03-18] MEDS: GABAPENTIN 100MG CAPSULE PO SCH ×3 (05:41→22:00)
[2023-03-18] MEDS: LEVOTHYROXINE SODIUM 25MCG TABLET PO SCH (05:41)
[2023-03-18] MEDS: LOSARTAN POTASSIUM 50 MG TABLET PO SCH ×2 (09:34→21:59)
[2023-03-18] MEDS: ENOXAPARIN 30MG/0.3ML SYR SUBCUT SCH (09:34)
[2023-03-18] MEDS: POLYVINYL ALCOHOL OPHTH DROPS 15ML BOTHEYE SCH ×4 (09:34→22:03)
[2023-03-18] MEDS: AMIODARONE HCL 200 MG TABLET PO SCH (09:35)
[2023-03-18] MEDS: NIFEDIPINE XL 90MG TAB PO SCH (09:35)
[2023-03-18] MEDS: METOPROLOL TARTRATE 50MG TABLET PO SCH ×2 (09:35→22:00)
[2023-03-18] MEDS: LETROZOLE 2.5MG TABLET PO SCH (09:40)
[2023-03-18] MEDS: FAMOTIDINE 20MG TABLET PO SCH (09:40)
[2023-03-18] MEDS: LIDOCAINE 5% PATCH TOP SCH (09:41)
[2023-03-19] MEDS: LEVOTHYROXINE SODIUM 25MCG TABLET PO SCH (06:57)
[2023-03-19] MEDS: TRAMADOL 50MG TABLET PO PRN (06:57)
[2023-03-19] MEDS: GABAPENTIN 100MG CAPSULE PO SCH (06:57)
[2023-03-19 09:56] VITALS: BP 122/56
[2023-03-19] MEDS: POLYVINYL ALCOHOL OPHTH DROPS 15ML BOTHEYE SCH (10:05)
[2023-03-19] MEDS: LETROZOLE 2.5MG TABLET PO SCH (10:05)
[2023-03-19] MEDS: ENOXAPARIN 30MG/0.3ML SYR SUBCUT SCH (10:06)
[2023-03-19] MEDS: AMIODARONE HCL 200 MG TABLET PO SCH (10:07)
[2023-03-19] MEDS: LIDOCAINE 5% PATCH TOP SCH (10:07)
[2023-03-19] MEDS: NIFEDIPINE XL 90MG TAB PO SCH (10:07)
[2023-03-19] MEDS: METOPROLOL TARTRATE 50MG TABLET PO SCH (10:07)
[2023-03-19] MEDS: LOSARTAN POTASSIUM 50 MG TABLET PO SCH (10:07)
[2023-03-19] MEDS: FAMOTIDINE 20MG TABLET PO SCH (10:07)
== END 2023-03-19 12:10 | disposition home health service (06) | DRG 551 ==
PROVIDERS: ADMIT Physical Medicine & Rehabilitation Spinal Cord Injury Medicine; ATTEND Internal Medicine
DX: M48.061 Spinal stenosis, lumbar region without neurogenic claudication (principal); G82.50 Quadriplegia, unspecified; I42.9 Cardiomyopathy, unspecified; M75.102 Unspecified rotator cuff tear or rupture of left shoulder, not specified as traumatic; R13.10 Dysphagia, unspecified; M17.0 Bilateral primary osteoarthritis of knee; M48.02 Spinal stenosis, cervical region; M54.16 Radiculopathy, lumbar region; K80.20 Calculus of gallbladder without cholecystitis without obstruction; K56.41 Fecal impaction; K52.9 Noninfective gastroenteritis and colitis, unspecified; I49.5 Sick sinus syndrome; E55.9 Vitamin D deficiency, unspecified; E78.00 Pure hypercholesterolemia, unspecified; I10 Essential (primary) hypertension; I25.10 Atherosclerotic heart disease of native coronary artery without angina pectoris; K21.9 Gastro-esophageal reflux disease without esophagitis; R53.81 Other malaise; K82.8 Other specified diseases of gallbladder; Z91.81 History of falling; Z88.0 Allergy status to penicillin; Z85.3 Personal history of malignant neoplasm of breast; Z86.16 Personal history of COVID-19; Z86.73 Personal history of transient ischemic attack (TIA), and cerebral infarction without residual deficits; Z95.0 Presence of cardiac pacemaker; Z95.2 Presence of prosthetic heart valve
CPT/HCPCS: 36415; 80048; 80053; 82306; 82607; 82746; 84134; 84443; 85025; 92523; 92610; 93970; 97110; 97112; 97116; 97150; 97162; 97166; 97530; 97535; J1650

== ENCOUNTER 2023-03-23 07:10 | Inpatient (IN) | payer MEDICARE, OTHER ==
[~2023-03-23] VITALS: Ht 162.6 cm; Wt 90.7 kg
[2023-03-23 08:47] LABS: CHLORIDE 104 mEq/L (98-107)
[2023-03-23 08:53] LABS: EOSINOPHILS % 1.7 % (0.0-5.0); HEMATOCRIT. 41.7 % (36.0-48.0); HEMOGLOBIN. 13.7 g/dL (12.0-16.0); LYMPHOCYTES % 25.8 % (20.0-50.0); MEAN CORPUSCULAR HEMOGLOBIN 31.5 pg (28.0-32.0); MEAN PLATELET VOLUME 9.7 fl (7.4-10.4); MONOCYTES % 13.4 % (2.0-8.0); NEUTROPHILS % 58.1 % (40.0-76.0); PLATELET 157 x1000/uL (130-400); RED BLOOD CELL COUNT 4.34 mill/uL (4.2-5.4); RED CELL DISTRIBUTION WIDTH 14.4 % (11.6-14.6)
[2023-03-23] MEDS ORDERED: KETOROLAC 30MG/ML VIAL IV ONE (11:00)
[2023-03-23] MEDS ORDERED: TRAMADOL 50MG TABLET PO PRN (20:45)
[2023-03-23] MEDS ORDERED: NALOXONE HCL 0.4MG/ML VIAL IV PRN (21:00)
[2023-03-23 22:17] VITALS: BP 142/57
[2023-03-23] MEDS ORDERED: ACETAMINOPHEN 325MG TABLET PO PRN (22:45)
[2023-03-23] MEDS ORDERED: CEFTRIAXONE 1GM PREMIX 50 ML IV SCH (22:45)
[2023-03-23] MEDS ORDERED: ONDANSETRON HCL 4MG/2ML INJ IV PRN (22:45)
[2023-03-23] MEDS ORDERED: TRAMADOL 50MG TABLET PO SCH (22:45)
[2023-03-23] MEDS ORDERED: OMEPRAZOLE 20MG CAPSULE EXTENDED RELEASE PO SCH (22:45)
[2023-03-24] VITALS: BP 136/62
[2023-03-24] MEDS: CEFTRIAXONE 1,000 MG in DEXTROSE 5% WATER 50 ML IV SCH (00:37)
[2023-03-24 04:00] VITALS: BP 126/51
[2023-03-24 07:48] LABS: HEMATOCRIT. 38.6 % (36.0-48.0); HEMOGLOBIN. 12.8 g/dL (12.0-16.0); MEAN CORPUSCULAR HEMOGLOBIN 31.6 pg (28.0-32.0); MEAN CORPUSCULAR VOLUME 95.3 fL (81.0-99.0); MEAN PLATELET VOLUME 9.9 fl (7.4-10.4); PLATELET 148 x1000/uL (130-400); RED BLOOD CELL COUNT 4.05 mill/uL (4.2-5.4)
[2023-03-24] MEDS ORDERED: ENOXAPARIN 30MG/0.3ML SYR SUBCUT SCH (09:00)
[2023-03-24] MEDS: ASPIRIN 81MG EC TABLET PO SCH (09:18)
[2023-03-24] MEDS: AMLODIPINE 2.5MG TABLET PO SCH (09:19)
[2023-03-24] MEDS: LOSARTAN POTASSIUM 50 MG TABLET PO SCH ×2 (09:19→18:02)
[2023-03-24] MEDS: GABAPENTIN 100MG CAPSULE PO SCH ×3 (09:19→18:02)
[2023-03-24] MEDS: AMIODARONE HCL 200 MG TABLET PO SCH (09:20)
[2023-03-24] MEDS: METOPROLOL TARTRATE 25MG TABLET PO SCH ×2 (09:20→22:06)
[2023-03-24 12:00] VITALS: BP 117/50
[2023-03-24] MEDS: LETROZOLE 2.5MG TABLET PO SCH (13:06)
[2023-03-24 16:00] VITALS: BP 122/53
[2023-03-24 16:03] LABS: PLATELET ESTIMATE NORMAL
[2023-03-24] MEDS ORDERED: TRAMADOL 50MG TABLET PO PRN (17:45)
[2023-03-24 20:00] VITALS: BP 152/62
[2023-03-24] MEDS ORDERED: ATORVASTATIN CALCIUM 20MG TABLET PO SCH (21:00)
[2023-03-25 00:11] VITALS: BP 138/50
[2023-03-25] MEDS: CEFTRIAXONE 1,000 MG in DEXTROSE 5% WATER 50 ML IV SCH (01:00)
[2023-03-25 04:00] VITALS: BP 149/57
[2023-03-25] MEDS ORDERED: OMEPRAZOLE 20MG CAPSULE EXTENDED RELEASE PO SCH (07:20)
[2023-03-25 08:00] VITALS: BP 166/64
[2023-03-25] MEDS: AMIODARONE HCL 200 MG TABLET PO SCH (08:03)
[2023-03-25] MEDS: METOPROLOL TARTRATE 25MG TABLET PO SCH (08:03)
[2023-03-25] MEDS: LOSARTAN POTASSIUM 50 MG TABLET PO SCH (08:03)
[2023-03-25] MEDS: ASPIRIN 81MG EC TABLET PO SCH (08:03)
[2023-03-25] MEDS: AMLODIPINE 2.5MG TABLET PO SCH (08:03)
[2023-03-25] MEDS: GABAPENTIN 100MG CAPSULE PO SCH ×2 (08:03→12:37)
[2023-03-25] MEDS: LETROZOLE 2.5MG TABLET PO SCH (08:04)
[2023-03-25] MEDS ORDERED: ENOXAPARIN 40MG/0.4ML SYR SUBCUT SCH (09:00)
[2023-03-25 12:00] VITALS: BP 149/49
[2023-03-25 14:57] VITALS: BP 139/59
== END 2023-03-25 15:52 | DRG 602 ==
LOC: ER 07:10 → 6EST 11:35 → EDBEDREQTM 11:38 → EDBEDREQ 11:38 → ER 19:54
PROVIDERS: ADMIT Internal Medicine; ATTEND Internal Medicine
DX: L03.115 Cellulitis of right lower limb (principal); G82.50 Quadriplegia, unspecified; I42.9 Cardiomyopathy, unspecified; I25.10 Atherosclerotic heart disease of native coronary artery without angina pectoris; E78.00 Pure hypercholesterolemia, unspecified; I49.5 Sick sinus syndrome; M17.0 Bilateral primary osteoarthritis of knee; M48.061 Spinal stenosis, lumbar region without neurogenic claudication; M75.102 Unspecified rotator cuff tear or rupture of left shoulder, not specified as traumatic; M48.02 Spinal stenosis, cervical region; I10 Essential (primary) hypertension; I35.9 Nonrheumatic aortic valve disorder, unspecified; I48.0 Paroxysmal atrial fibrillation; I70.203 Unspecified atherosclerosis of native arteries of extremities, bilateral legs; I89.0 Lymphedema, not elsewhere classified; R13.10 Dysphagia, unspecified; S90.32XA Contusion of left foot, initial encounter; S90.31XA Contusion of right foot, initial encounter; S30.0XXA Contusion of lower back and pelvis, initial encounter; Z85.3 Personal history of malignant neoplasm of breast; Z79.811 Long term (current) use of aromatase inhibitors; Z79.82 Long term (current) use of aspirin; Z86.16 Personal history of COVID-19; Z86.73 Personal history of transient ischemic attack (TIA), and cerebral infarction without residual deficits; Z88.0 Allergy status to penicillin; Z95.0 Presence of cardiac pacemaker; Z95.2 Presence of prosthetic heart valve; Z79.899 Other long term (current) drug therapy; X58.XXXA Exposure to other specified factors, initial encounter; Y93.89 Activity, other specified; Y92.89 Other specified places as the place of occurrence of the external cause; Y99.8 Other external cause status
CPT/HCPCS: 36415; 71045; 73630; 80048; 80053; 83880; 84484; 84550; 85025; 85651; 92610; 93005; 93923; 97162; 97166; 99285; J0696; J1650; J1885; J7060

== ENCOUNTER 2023-08-13 02:30 | Emergency (ER) | payer MEDICARE, OTHER ==
[~2023-08-13] VITALS: Ht 152.4 cm; Wt 75.0 kg
[2023-08-13 02:33] VITALS: O2SAT 97
[2023-08-13] MEDS ORDERED: ACETAMINOPHEN 325MG TABLET PO ONE (02:45)
[2023-08-13] MEDS ORDERED: TETANUS, DIPHTHERIA, PERTUSSIS VAC/PF 0.5ML (>10YR OLD) IM ONE (05:15)
[2023-08-13] MEDS ORDERED: ACET-2708 MT (06:03)
[2023-08-13 06:06] VITALS: BP 144/61; PULSE 60; RESP 12; TEMP 98.2
== END 2023-08-13 07:09 | disposition home or self-care (01) ==
LOC: ER 02:30
DX: S00.03XA Contusion of scalp, initial encounter (principal); Z00.00 Encounter for general adult medical examination without abnormal findings; E78.00 Pure hypercholesterolemia, unspecified; I25.2 Old myocardial infarction; I10 Essential (primary) hypertension; W18.30XA Fall on same level, unspecified, initial encounter; Y93.89 Activity, other specified; Y92.89 Other specified places as the place of occurrence of the external cause; Y99.8 Other external cause status; Z88.0 Allergy status to penicillin; Z88.5 Allergy status to narcotic agent; Z79.899 Other long term (current) drug therapy; Z86.73 Personal history of transient ischemic attack (TIA), and cerebral infarction without residual deficits
CPT/HCPCS: 73562; 90471; 90715; 99285